=== PATIENT | female | born 1960 | race American Indian/Alaskan Native ===

== ENCOUNTER 2020-09-24 17:26 | Inpatient (IN) | payer OTHER ==
[2020-09-24] MEDS ORDERED: HEPARIN 1,000 UNIT/1 ML VIAL IV ONE (17:29)
[2020-09-24] MEDS ORDERED: CLOPIDOGREL 300 MG TAB PO ONE (17:29)
[2020-09-24] MEDS ORDERED: ONDANSETRON 4 MG/2 ML INJ ONE (17:30)
[2020-09-24] MEDS ORDERED: SODIUM CHLORIDE 0.9% 1000 ML 1,000 ML ONE (17:34)
[2020-09-24] MEDS ORDERED: ONDANSETRON 4 MG/2 ML INJ IV ONE (17:35)
[2020-09-24] MEDS ORDERED: SODIUM CHLORIDE 0.9% 500 ML 500 ML IV ONE (17:35)
--- NOTE | 2020-09-24 17:40 | Emergency Department Report ---
ED Chest Pain HPI - General Stated Complaint: STEMI Time Seen by Provider: 09/24/20 17:29 - History of Present Illness Initial Comments: 59-year-old female, history of hypertension, presents to ED with chest pain since 9 AM this morning. Patient reports substernal burning sensation in her chest. There is associated nausea and vomiting. She denies any shortness of breath. Upon EMS arrival, EKG was done which showed a acute STEMI. EKG was transmitted. STEMI alert was called prior to arrival. EKG was transmitted to Dr. Fall. Patient given 325 mg aspirin and 1 sublingual nitro prior to arrival. Patient received Moderna COVID-19 vaccine 2 weeks ago. MD Complaint: chest pain -: This morning Onset: during rest Pain Location: substernal Pain Radiation: none Severity: severe Quality: other (Burning) Consistency: constant Improves With: nothing Worsens With: nothing re: nausea, vomting Treatments Prior to Arrival: aspirin, nitroglycerin - Related Data Allergies Allergy/AdvReac Type Severity Reaction Status Date / Time tetracycline Allergy Unknown Verified 09/24/20 17:45 Heart Score - HEART Score History: Highly suspicious EKG: Significant ST-depression Age: 45-65 Risk factors: 1-2 risk factors Troponin: < normal limit HEART Score: 6 - EKG Read Time Time EKG Completed: 17:40 EKG Read Time: 17:40 ED Review of Systems ROS: Stated complaint: STEMI Other details as noted in HPI Comment: All other systems reviewed and negative Respiratory: denies: SOB with exertion Cardiovascular: chest pain Gastrointestinal: nausea, vomiting ED Physical Exam - General General appearance: alert, other (Appears uncomfortable) - Head Head exam: Present: atraumatic, normocephalic - Eye Eye exam: Present: normal appearance, EOMI - ENT ENT exam: Present: mucous membranes moist - Neck Neck exam: Present: normal inspection - Respiratory Respiratory exam: Present: normal lung sounds bilaterally. Absent: respiratory distress - Cardiovascular Cardiovascular Exam: Present: regular rate, normal rhythm - GI/Abdominal GI/Abdominal exam: Present: soft. Absent: distended, tenderness - Extremities Exam Extremities exam: Present: normal inspection - Neurological Exam Neurological exam: Present: alert, oriented X3 - Psychiatric Psychiatric exam: Present: normal affect, normal mood - Skin Skin exam: Present: warm, dry, intact, normal color ED Course Vital Signs 05/09/24/20 09/24/20 17:30 17:44 17:46 Temperature 98 F Pulse Rate 73 61 68 Respiratory 18 22 13 Rate Blood Pressure 109/60 Blood Pressure 109/60 [Right] O2 Sat by Pulse 98 Oximetry ED Medical Decision Making - Lab Data Result diagrams: 09/24/20 17:48 09/24/20 17:48 - EKG Data -: EKG Interpreted by Me EKG shows normal: sinus rhythm, axis, intervals, QRS complexes Rate: normal - EKG Data Interpretation: acute [place] (ST elevations present and leads I and aVL with re ciprocal depressions in inferior leads) - Radiology Data Radiology results: report reviewed, image reviewed - Medical Decision Making 59-year-old female presents to ED with acute STEMI. Prehospital STEMI alert called. EKG reviewed by Dr. Fall, landscape technician. Patient given aspirin and sublingual nitro x1 by EMS. Here in ED BP is low normal, 500 cc bolus of IV fluids given. Patient also given Plavix and heparin bolus. EKG shows lateral elevation with inferior depressions. Patient was taken to the [facility] emergent catheterization. Patient will be admitted by hospitalist, Dr. Bailon. - Differential Diagnosis STEMI Critical Care Time: Yes Critical care time in (mins) excluding proc time.: 35 Critical care attestation.: If time is entered above; I have spent that time in minutes in the direct care of this critically ill patient, excluding procedure time. Critical Care Time: 35 min ED Disposition Clinical Impression: STEMI (ST elevation myocardial infarction) Disposition: 09 OP ADMIT IP TO THIS HOSP Is pt being admited?: Yes Condition: Stable Time of Disposition: 17:52
--- NOTE | 2020-09-24 17:55 | XRay Report ---
CHEST 1 VIEW 09/24/2020 5:28 PM INDICATION / CLINICAL INFORMATION: Chest pain. COMPARISON: None available. FINDINGS: SUPPORT DEVICES: None. HEART / MEDIASTINUM: The heart size and pulmonary vasculature are normal. The aorta is normal in eber aminata. LUNGS / PLEURA: There is mild linear parenchymal opacity in both lung bases. The lungs are otherwise clear. No pleural effusion. No pneumothorax. ADDITIONAL FINDINGS: No significant additional findings. IMPRESSION: Mild bibasilar subsegmental atelectasis. Signer Name: Kain Carroll MD Signed: 09/24/2020 5:50 PM Workstation Name: [id number]
--- NOTE | 2020-09-24 17:55 | History and Physical Report ---
History of Present Illness Chief complaint: I have chest pain History of present illness: 59 YO Female with HTN presents to ED for evaluation. Pt reports "I have pain in my chest". Patient states that she has experienced an acute onset of chest pain that began at approximately 0900 hrs. Patient states that pain is 6-10/10, substernal, constant, nonradiating, burning in nature, associated with nausea, associated with vomiting, worsened with exertion, not relieved with rest. EMS was notified and upon arrival the patient was found to be in distress. An EKG was done and the patient was found to have evidence of an acute STEMI. A code STEMI was called and the patient was transported to [facility] for further care and evaluation of the aforementioned symptoms. The patient was seen and evaluated in the emergency department. All lab and imaging studies reviewed. Repeat EKG shows evidence of STEMI. Pt also found to have symptoms of Diastolic CHF. Cardiology team consulted. Patient admitted to ICU and initiated on STEMI protocol. Patient taken urgently to cardiac [facility] for surgical invention. Patient denies fever, chills, palpitation, productive cough, skin rash, recent ill contacts, or known exposure to COVID-19. Advanced care planning conducted in ED. No prior admission for review. No medication listed at time of admission for reconciliation. Past History Past Medical History: hypertension, other (Reviewed) Past Surgical History: No surgical history, Other (Reviewed) Social history: single, lives with family. denies: smoking, alcohol abuse, prescription drug abuse Family history: hypertension Medications and Allergies Allergies Allergy/AdvReac Type Severity Reaction Status Date / Time tetracycline Allergy Unknown Verified 09/24/20 17:45 Active Meds: Active Medications Clopidogrel Bisulfate (Clopidogrel 300 Mg Tab) 600 mg PO ONCE ONE Stop: 09/24/20 17:30 Last Admin: 09/24/20 17:32 Dose: 600 mg Documented by: Heparin Sodium (Porcine) (Heparin 1,000 Unit/1 Ml Vial) 4,000 unit IV BOLUS ONE Stop: 09/24/20 17:30 Last Admin: 09/24/20 17:32 Dose: 4,000 unit Documented by: Sodium Chloride (Nacl 0.9% 500 Ml) 500 mls @ 999 mls/hr IV ONCE ONE Stop: 09/24/20 18:05 Last Admin: 09/24/20 17:39 Dose: 999 mls/hr Documented by: Ondansetron HCl (Ondansetron 4 Mg/2 Ml Inj) 4 mg IV ONCE ONE Stop: 09/24/20 17:36 Last Admin: 09/24/20 17:39 Dose: 4 mg Documented by: Review of Systems Constitutional: no weight loss, no fever, no chills, no sweats Ears, nose, mouth and throat: no ear pain, no tinnitis, no decreased hearing, no nose pain, no nasal congestion Breasts: no change in shape, no swelling, no mass Cardiovascular: chest pain, no orthopnea, no palpitations, no syncope Respiratory: no cough, no cough with sputum, no excessive sputum, no shortness of breath, no dyspnea on exertion Gastrointestinal: no nausea, no diarrhea, no constipation, no hematemesis, no coffee ground emesis Genitourinary Female: no pelvic pain, no flank pain, no menorrhagia, no dysuria, no urinary frequency, no urgency Rectal: no pain, no incontinence, no bleeding Musculoskeletal: no neck stiffness, no neck pain, no arm numbness/tingling, no low back pain, no shooting leg pain Integumentary: no rash, no redness Neurological: no head injury, no paralysis, no weakness, no numbness, no tingling, no seizures, no syncope Psychiatric: no anxiety, no change in sleep habits, no sleep disturbances, no hypersomnia, no change in appetite, no suicidal ideation Endocrine: no heat intolerance, no polyphagia, no excessive thirst, no polyuria Hematologic/Lymphatic: no easy bruising, no easy bleeding, no lymphadenopathy Allergic/Immunologic: no urticaria, no persistent infections, no anaphylaxis, no angioedema Exam - Constitutional Vitals: Temp Pulse Resp BP Pulse Ox 98 F 61 22 109/60 98 09/24/20 17:44 09/24/20 17:44 09/24/20 17:44 09/24/20 17:44 09/24/20 17:44 General appearance: Present: mild distress - EENT Eyes: Present: PERRL ENT: hearing intact, clear oral mucosa - Neck Neck: Present: supple, normal ROM - Respiratory Respiratory effort: normal Respiratory: bilateral: CTA - Cardiovascular Heart Sounds: Present: S1 & S2. Absent: rub, click - Extremities Extremities: pulses symmetrical, No edema Peripheral Pulses: within normal limits - Abdominal General gastrointestinal: Present: soft, non-tender, non-distended, normal bowel sounds Female genitourinary: Present: normal - Integumentary Integumentary: Present: clear, warm, dry - Musculoskeletal Musculoskeletal: gait normal, strength equal bilaterally - Psychiatric Psychiatric: appropriate mood/affect, intact judgment & insight - Neurologic Neurologic: CNII-XII intact, moves all extremities Results - Labs CBC & Chem 7: 09/24/20 17:48 09/24/20 17:48 Assessment and Plan - Patient Problems (1) STEMI (ST elevation myocardial infarction) Current Visit: No Status: Acute Plan to address problem: Cardiology team consulted in ED, cardiac cath as per cardiology team, admit to ICU, telemetry, further care as per cardiology team. The high probability of a clinically significant, sudden or life threatening deterioration of the [cardiac, vascular,] system(s) required my full and direct attention, intervention and personal management. The aggregate critical care time was [65] minutes. This time is in addition to time spent performing reported procedures but includes the following: [x] Data Review and interpretation [x] Patient assessment and monitoring of vital signs [x] Documentation [x] Medication orders and management (2) Hypertension Current Visit: Yes Status: Acute Qualifiers: Hypertension type: essential hypertension Qualified Code(s): I10 - Essential (primary) hypertension Plan to address problem: Monitor blood pressure every shift, continue medical management (3) Diastolic CHF Current Visit: Yes Status: Acute Plan to address problem: Strict I/O, daily weight, afterload reduction, blood pressure control, cardiology team consulted in ED. (4) DVT prophylaxis Current Visit: Yes Status: Acute Plan to address problem: SCD to bilateral lower extremities while in bed
[2020-09-24] MEDS ORDERED: HEPARIN/NS 5000 UNIT/500ML 1,000 ML IR ONE (17:56)
[2020-09-24] MEDS ORDERED: fentaNYL 100 MCG/2 ML INJ ONE (17:57)
[2020-09-24] MEDS ORDERED: MIDAZOLAM 2 MG/2 ML INJ ONE (17:57)
[2020-09-24 17:58] LABS: Basophils % (Auto) 0.4 % (0.0-1.8); Eosinophils % (Auto) 0.4 % (0.0-4.3); Hematocrit 36.4 % (30.3-42.9); Hemoglobin 11.6 gm/dl (10.1-14.3); Lymphocytes # (Auto) 1.7 K/mm3 (1.2-5.4); Lymphocytes % (Auto) 20.2 % (13.4-35.0); Mean Corpuscular HGB Conc 32 % (30-34); Mean Corpuscular Volume 74 fl (79-97); Monocytes # (Auto) 0.6 K/mm3 (0.0-0.8); Monocytes % (Auto) 7.4 % (0.0-7.3); Platelet Count 373 K/mm3 (140-440); Red Blood Count 4.95 M/mm3 (3.65-5.03); Red Cell Distribution Width 15.4 % (13.2-15.2)
[2020-09-24] MEDS ORDERED: NITROGLYCERIN SYRINGE 3 ML ONE (17:58)
[2020-09-24] MEDS ORDERED: VERAPAMIL 5 MG/2 ML INJ ONE (17:58)
[2020-09-24] MEDS ORDERED: LIDOCAINE (2%) 20 MG/1 ML VIAL 20 ML MDV INFILTRATI ONE (17:58)
[2020-09-24 18:10] LABS: INR 1.15 (0.87-1.13)
[2020-09-24] MEDS: HEPARIN 10,000 UNITS/10 ML VIAL ONE ×2 (18:13→18:22)
[2020-09-24 18:21] LABS: Creatine Kinase MB 1.8 ng/mL (0.0-4.0)
[2020-09-24 18:23] LABS: BUN/Creatinine Ratio 14; Blood Urea Nitrogen 13 mg/dL (7-17); Calcium 9.1 mg/dL (8.4-10.2); Hemolysis Index 4
[2020-09-24 18:30] LABS: Partial Thromboplastin Time 124.2 Sec. (24.2-36.6)
[2020-09-24] MEDS ORDERED: HEPARIN 10,000 UNITS/10 ML VIAL IV ONE (19:00)
--- NOTE | 2020-09-24 19:03 | Event Note ---
Full consultation and cath report dictated.
[2020-09-24] MEDS ORDERED: CLOPIDOGREL 300 MG TAB ONE (19:07)
[2020-09-24] MEDS ORDERED: ALUM-MAG HYDROXIDE-SIMETHICONE 200-200-20MG/5ML ORAL LIQD 30 ML ONE (19:07)
--- NOTE | 2020-09-24 19:32 | Cardiac Catherization Report ---
DATE OF PROCEDURE: 09/24/2020 CARDIAC CATHETERIZATION REPORT REFERRING PHYSICIAN: Emergency Room, Dr. Philippe. INDICATIONS FOR PROCEDURE: The patient is a 59-year-old -[place]oven[place] female who has had 2-3 hours of chest pain, presented to the Emergency Room with anterolateral ST elevation with inferior reciprocal changes. STEMI protocol was initiated. The patient was loaded with aspirin, Plavix, and heparin in the Emergency Room, for emergent left heart catheterization. DESCRIPTION OF PROCEDURE: The patient was brought to label drier in an urgent fashion given the aforementioned. Prepped and draped in sterile fashion. A 2 mL of 2% lidocaine used to anesthetize the right wrist. A standard 6-[place]izen [place] hydrophilic sheath used to cannulate the right radial artery via modified Seldinger technique. All exchanges performed to exchange a J-tip guidewire. JL3.5 catheter used to engage the left main. No dampening or ventricularization. Angiography was performed in all projections. JR4 catheters used cross the aortic valve under fluoroscopic guidance. Left ventriculography was performed in the 30 JIMENEZ 30 JOELLE projections via hand injections, catheter flushed. Manual pullback was performed with continuous pressure monitoring. Catheter was engaged the right coronary, no dampening or ventricularization. Cineangiography performed in multiple projections. CORONARY ANATOMY: This is a right dominant system. There is 80-90% mid right coronary stenosis which is smooth. UVALDO-3 flow. Left main without significant disease, bifurcates in left anterior descending, left circumflex. Left circumflex is a small system, diffuse disease proximally, small through AV groove circ. LAD with a 99% subtotal occlusion of the mid segment after the takeoff of a large septal branch. At this point, we turned our attention to primary PCI. Abnormal ACT is confirmed. We used a [place] wire to cross the lesion without difficulty. A 2.5 x 12 balloon used to predilate the lesion. Next, we used a 2.75 x 22 Todd drug-eluting stent deployed at 12 NYDIA for 30 seconds. Excellent final angiographic result. Intravascular ultrasound was performed, which reveals an well-apposed and well-expanded stent. No evidence of dissection or complication. Final angiograms revealed an excellent result with UVALDO-3 flow. At this point, we will treat the right coronary electively during this hospitalization. I directly supervised the administration of moderate sedation with fentanyl and Versed from 6:00 p.m. to 6:40 p.m. No immediate complications were identified. CONCLUSIONS: 1. Severe 2-vessel coronary artery disease in this right dominant system. Acute atherothrombotic occlusion of the mid left anterior descending, successful IVUS guided primary PCI placement of drug-eluting stent (Todd 2.75 x 22) with excellent final angiographic and ultrasonographic result. 2. The 80% mid right coronary stenosis which is smooth and stable. UVALDO-3 flow. We will electively treat in 2-3 days should the patient remain stable. 3. Left ventricle reveals anterior apical hypokinesis with estimated ejection fraction of 40-45%. FINDINGS: Aortic pressure is 130/70, LV pressure is 130, LVEDP of 20 mmHg. At this point, the patient is clinically stable, chest pain free, electrically and hemodynamically stable. Did have bouts of AIVR precath. At this point, continue dual antiplatelet therapy, statin therapy. We will initiate low-dose beta blockade. The patient will be admitted to ICU by hospitalist service. We will continue to follow along. Check echocardiogram. We will also attempt to reach family who were not present at this time. TID: [id number] RECEIPT: [id number] SHAYLA/JOSE ANTONIO
[2020-09-24] MEDS: carvediloL 3.125 MG TAB PO SCH (21:09)
[2020-09-24 21:17] LABS: Creatine Kinase MB 84.6 ng/mL (0.0-4.0)
[2020-09-24 21:32] LABS: Chol/HDL Ratio 6.13 %
--- NOTE | 2020-09-25 00:11 | Consultation ---
DATE OF CONSULTATION: 09/24/2020 REASON FOR CONSULTATION: STEMI. HISTORY OF PRESENT ILLNESS: The patient is a pleasant 59-year-old -Finnish female with history of hypertension, presents here with chest pain for 2-3 hours. She does not have a regular primary care physician, does see Urgent Care from time to time. She has been having crushing chest pain, diaphoresis, and shortness of breath for approximately 2-3 hours, presents to [facility], was found to have anterolateral ST elevation on EKG, 10/10 chest pain, no cold or heat intolerance. No vomiting or nausea. No leg pain or rashes. ALLERGIES: No known drug, food, or environmental allergies. LABORATORY DATA: Pending. SOCIAL HISTORY: The patient states she is a nonsmoker, nondrinker. She does endorse a family history of premature heart disease. MEDICATIONS: No known medications at this time. The patient was loaded with aspirin, Plavix, and heparin in the Emergency Room. DIAGNOSTIC DATA: EKG is aforementioned. PHYSICAL EXAMINATION: VITAL SIGNS: Blood pressure is 140/80. She is afebrile. Tele reveals a sinus rhythm. O2 sats 98% on room air. GENERAL: This is a middle-aged, -Finnish female in apparent distress. HEENT: Sclerae are anicteric. PERRL. NECK: Supple, no masses. No JVD. CHEST: Clear to auscultation bilaterally. Good air movement. HEART: Regular rhythm, S1 and S2. ABDOMEN: Soft, nontender, nondistended. Normoactive bowel sounds in 4 quadrants. No mass or bruits. EXTREMITIES: No cyanosis, clubbing or edema. Good peripheral pulses. SKIN: Intact. No rashes. DATA: As aforementioned. Labs pending. EKG is aforementioned. ASSESSMENT AND PLAN: In summary, the patient is a pleasant 59-year-old, -Finnish female. 1. Acute anterolateral ST-elevation myocardial infarction. STEMI protocol was initiated. The patient has been loaded with appropriate optimal medical therapy. Emergent left heart catheterization. Further plans contingent on these results. TID: [id number] RECEIPT: [id number] JAMIE/ROBSON
[2020-09-25 04:49] LABS: Basophils % (Auto) 0.2 % (0.0-1.8); Eosinophils % (Auto) 0.3 % (0.0-4.3); Hematocrit 36.3 % (30.3-42.9); Hemoglobin 11.7 gm/dl (10.1-14.3); Lymphocytes # (Auto) 1.5 K/mm3 (1.2-5.4); Lymphocytes % (Auto) 21.5 % (13.4-35.0); Mean Corpuscular HGB Conc 32 % (30-34); Mean Corpuscular Volume 74 fl (79-97); Monocytes # (Auto) 0.7 K/mm3 (0.0-0.8); Monocytes % (Auto) 10.3 % (0.0-7.3); Platelet Count 359 K/mm3 (140-440); Red Blood Count 4.94 M/mm3 (3.65-5.03); Red Cell Distribution Width 14.8 % (13.2-15.2)
--- NOTE | 2020-09-25 04:58 | XRay Report ---
CHEST 1 VIEW INDICATION: post pci COMPARISON: 09/24/2020 FINDINGS: SUPPORT DEVICES: None. HEART / MEDIASTINUM: No significant abnormality. LUNGS / PLEURA: No significant pulmonary or pleural abnormality. No pneumothorax. ADDITIONAL FINDINGS: IMPRESSION: 1. No acute cardiopulmonary disease Signer Name: Noe Day MD Signed: 09/25/2020 4:54 AM Workstation Name: [id number]
[2020-09-25 05:12] LABS: Blood Urea Nitrogen 9 mg/dL (7-17); Calcium 9.2 mg/dL (8.4-10.2); Hemolysis Index 3
[2020-09-25 05:15] LABS: BUN/Creatinine Ratio 13
[2020-09-25] MEDS ORDERED: SODIUM POLYSTYRENE 15 GM/60 ML ORAL LIQD PO ONE (05:54)
[2020-09-25] MEDS ORDERED: MORPHINE 2 MG/1 ML INJ IV ONE (06:12)
--- NOTE | 2020-09-25 08:04 | Progress Note ---
Assessment and Plan Assessment and plan: --Acute STEMI (ST elevation myocardial infarction) --Acute anterolateral ST elevation OK; Current Visit: No Status: Acute Cardiology evaluated the patient, patient underwent Emergent left catheterization. s/p PCI Severe two-vessel coronary artery disease in the Right dominant system acute atherothrombotic occlusion of the mid LAD status post successful IVUS guided primary PCI placement of drug eluting stent 80% mid right coronary stenosis smooth and stable Electively treat in 2 to 3 days when patient is more stable Echo ;left ventricle anterior apical hypokinesis with estimated EF 40 to 45% Continue dual antiplatelet therapy with aspirin and Plavix Continue beta-blockers , consider JUAN inhibitor's , nitrates and statins Morphine for pain , cardiology following --Dyslipidemia; Current Visit: Yes Status: Acute. Low-cholesterol diet, statin --Hypertension/moderate control Current Visit: Yes Status: Acute Continue antihypertensives As needed medications, low-sodium diet --PUI; high suspicion for COVID-19 Contact and respiratory isolation Follow hardy PCR test, consult ID if positive --DVT prophylaxis Current Visit: Yes Status: Acute SCD to bilateral lower extremities while in bed. We will monitor the patient closely and adjust the management as needed Plan of care reviewed with the patient and her nurse Biostatistics Professor recommendations noted and appreciated The high probability of a clinically significant, sudden or life threatening deterioration of the [cardiac, vascular,] system(s) required my full and direct attention, intervention and personal management. The aggregate critical care time was [35] minutes. This time is in addition to time spent performing reported procedures but includes the following: [x] Data Review and interpretation [x] Patient assessment and monitoring of vital signs [x] Documentation [x] Medication orders and management History Interval history: I have seen and examined the patient at the bedside in ICU Patient's chart and medications reviewed Acute ST elevation OK status post left heart catheterization status post PCI Patient feels slightly better Continues to have intermittent chest pain Denies shortness of breath or palpitation Vital signs noted Hospitalist Physical - Constitutional Vitals: Temp Pulse Resp BP Pulse Ox 98.6 F 69 14 145/87 96 09/25/20 07:00 09/25/20 06:01 09/25/20 06:01 09/25/20 06:01 09/25/20 06:01 General appearance: Present: mild distress, well-nourished - EENT Eyes: Present: PERRL, EOM intact - Neck Neck: Present: supple, normal ROM - Respiratory Respiratory effort: normal Respiratory: bilateral: diminished, negative: rales, rhonchi, wheezing - Cardiovascular Rhythm: regular Heart Sounds: Present: S1 & S2 - Extremities Extremities: no ischemia, No edema - Abdominal General gastrointestinal: soft, non-tender, non-distended, normal bowel sounds - Integumentary Integumentary: Present: clear, warm - Psychiatric Psychiatric: appropriate mood/affect, cooperative - Neurologic Neurologic: CNII-XII intact, moves all extremities HEART Score - HEART Score EKG: Significant ST-depression Age: 45-65 Risk factors: 1-2 risk factors Troponin: Troponin T 3.140 ng/mL (0.00-0.029) H* D 09/25/20 04:16 Troponin: < normal limit Results - Labs CBC & Chem 7: 09/25/20 04:16 09/25/20 04:16 Labs: Laboratory Last Values WBC 6.9 K/mm3 (4.5-11.0) 09/25/20 04:16 RBC 4.94 M/mm3 (3.65-5.03) 09/25/20 04:16 Hgb 11.7 gm/dl (10.1-14.3) 09/25/20 04:16 Hct 36.3 % (30.3-42.9) 09/25/20 04:16 MCV 74 fl (79-97) L 09/25/20 04:16 MCH 24 pg (28-32) L 09/25/20 04:16 MCHC 32 % (30-34) 09/25/20 04:16 RDW 14.8 % (13.2-15.2) 09/25/20 04:16 Plt Count 359 K/mm3 (140-440) 09/25/20 04:16 Lymph % (Auto) 21.5 % (13.4-35.0) 09/25/20 04:16 Guthrie % (Auto) 10.3 % (0.0-7.3) H 09/25/20 04:16 Eos % (Auto) 0.3 % (0.0-4.3) 09/25/20 04:16 Baso % (Auto) 0.2 % (0.0-1.8) 09/25/20 04:16 Lymph # (Auto) 1.5 K/mm3 (1.2-5.4) 09/25/20 04:16 Guthrie # (Auto) 0.7 K/mm3 (0.0-0.8) 09/25/20 04:16 Eos # (Auto) 0.0 K/mm3 (0.0-0.4) 09/25/20 04:16 Baso # (Auto) 0.0 K/mm3 (0.0-0.1) 09/25/20 04:16 Seg Neutrophils % 67.7 % (40.0-70.0) 09/25/20 04:16 Seg Neutrophils # 4.6 K/mm3 (1.8-7.7) 09/25/20 04:16 PT 14.6 Sec. (12.2-14.9) 09/24/20 17:48 INR 1.15 (0.87-1.13) H 09/24/20 17:48 APTT 124.2 Sec. (24.2-36.6) H* 09/24/20 17:48 Sodium 141 mmol/L (137-145) 09/25/20 04:16 Potassium 5.1 mmol/L (3.6-5.0) H D 09/25/20 04:16 Chloride 105.1 mmol/L (98-107) 09/25/20 04:16 Carbon Dioxide 26 mmol/L (22-30) 09/25/20 04:16 Anion Gap 15 mmol/L 09/25/20 04:16 BUN 9 mg/dL (7-17) 09/25/20 04:16 Creatinine 0.7 mg/dL (0.6-1.2) 09/25/20 04:16 Estimated GFR > 60 ml/min 09/25/20 04:16 BUN/Creatinine Ratio 13 % 09/25/20 04:16 Glucose 102 mg/dL (65-100) H 09/25/20 04:16 Calcium 9.2 mg/dL (8.4-10.2) 09/25/20 04:16 Total Creatine Kinase 974 units/L (30-135) H 09/25/20 04:16 CK-MB (CK-2) 130.0 ng/mL (0.0-4.0) H 09/25/20 04:16 CK-MB (CK-2) Rel Index 13.3 (0-4) H 09/25/20 04:16 Troponin T 3.140 ng/mL (0.00-0.029) H* D 09/25/20 04:16 Triglycerides 85 mg/dL (2-149) 09/24/20 20:08 Cholesterol 184 mg/dL (50-199) 09/24/20 20:08 LDL Cholesterol Direct 142 mg/dL (50-130) H 09/24/20 20:08 HDL Cholesterol 30 mg/dL (40-59) L 09/24/20 20:08 Cholesterol/HDL Ratio 6.13 % 09/24/20 20:08 Blood Type B POSITIVE 09/24/20 17:48 Antibody Screen Negative 09/24/20 17:48 Active Medications - Current Medications Current Medications: Generic Name Dose Route Start Last Admin Trade Name Freq PRN Reason Stop Dose Admin Hydrocodone Bitart/Acetaminophen 1 each 09/24/20 19:00 Hydrocodone/Acetaminophen 5-325 Mg Tab PO Q6H PRN Pain, Moderate (4-6) Aspirin 325 mg 09/25/20 10:00 Aspirin Ec 325 Mg Tab PO QDAY THANG Carvedilol 3.125 mg 09/24/20 22:00 09/24/20 21:09 Carvedilol 3.125 Mg Tab PO 3.125 mg BID THANG Administration Clopidogrel Bisulfate 75 mg 09/25/20 10:00 Clopidogrel 75 Mg Tab PO QDAY THANG Sodium Chloride 10 ml 09/24/20 22:00 09/24/20 21:09 Sodium Chloride 0.9% 10 Ml Flush Syringe IV 10 ml BID THANG Administration Sodium Chloride 10 ml 09/24/20 17:55 Sodium Chloride 0.9% 10 Ml Flush Syringe IV PRN PRN LINE FLUSH
[2020-09-25] MEDS: ASPIRIN EC 325 MG TAB PO SCH (09:51)
[2020-09-25] MEDS: CLOPIDOGREL 75 MG TAB PO SCH (09:51)
[2020-09-25] MEDS: carvediloL 3.125 MG TAB PO SCH ×2 (09:51→21:08)
[2020-09-25] MEDS: NITROGLYCERIN 0.4 MG TAB SUBL SL PRN (09:52)
[2020-09-25] MEDS: FAMOTIDINE 20 MG/2 ML INJ IV SCH ×2 (09:52→21:08)
--- NOTE | 2020-09-25 11:32 | Consultation ---
History of Present Illness Consult date: 09/25/20 Requesting physician: ASHELY ANGUIANO Reason for consult: other (STEMI) History of present illness: 59 YO Female with HTN presents to ED for evaluation. Pt reports "I have pain in my chest". Patient states that she has experienced an acute onset of chest pain that began at approximately 0900 hrs. Patient states that pain is 6-10/10, substernal, constant, nonradiating, burning in nature, associated with nausea, associated with vomiting, worsened with exertion, not relieved with rest. EMS was notified and upon arrival the patient was found to be in distress. An EKG was done and the patient was found to have evidence of an acute STEMI. A code STEMI was called and the patient was transported to [facility] for further care and evaluation of the aforementioned symptoms. The patient was seen and evaluated in the emergency department. All lab and imaging studies reviewed. Repeat EKG shows evidence of STEMI. Pt also found to have symptoms of Diastolic CHF. Cardiology team consulted. Patient admitted to ICU and initiated on STEMI protocol. Patient taken urgently to cardiac Speech Language Pathologist Assistant for surgical invention. Patient denies fever, chills, palpitation, productive cough, skin rash, recent ill contacts, or known exposure to COVID-19. Status post acute enzo-lateral ST elevation myocardial infarction s/p Succes sful primary PCI of LAD with MARIAM yesterday with p[carisa for second stage procedure on Wednesday 09/27. Patient was admitted to the ICU ppost procedure Critical care consult placed for ICU care Patient seen and examined. Patient received Moderna COVID-19 vaccine 2 weeks ago, waiting to get her second dose She does state that both her sisters had MIs and have stents- all before the age of 60 years Vitals, labs, medications, chart reviewed. Resting peacefully in bed, denies any chest pain, no shortness of breath. No fevers or chills, no nausea or vomiting. Past History Past Medical History: hypertension, other (Reviewed) Past Surgical History: No surgical history, Other (Reviewed) Social history: single, lives with family. denies: smoking, alcohol abuse, prescription drug abuse Family history: hypertension Medications and Allergies Allergies Allergy/AdvReac Type Severity Reaction Status Date / Time tetracycline Allergy Unknown Verified 09/24/20 17:45 Active Meds: Active Medications Hydrocodone Bitart/Acetaminophen (Hydrocodone/Acetaminophen 5-325 Mg Tab) 1 each PO Q6H PRN PRN Reason: Pain, Moderate (4-6) Aspirin (Aspirin Ec 325 Mg Tab) 325 mg PO QDAY [facility] Last Admin: 09/25/20 09:51 Dose: 325 mg Documented by: Carvedilol (Carvedilol 3.125 Mg Tab) 3.125 mg PO BID [facility] Last Admin: 09/25/20 09:51 Dose: 3.125 mg Documented by: Clopidogrel Bisulfate (Clopidogrel 75 Mg Tab) 75 mg PO QDAY [facility] Last Admin: 09/25/20 09:51 Dose: 75 mg Documented by: Famotidine (Famotidine 20 Mg/2 Ml Inj) 20 mg IV BID [facility] Last Admin: 09/25/20 09:52 Dose: 20 mg Documented by: Nitroglycerin (Nitroglycerin 0.4 Mg Tab Subl) 0.4 mg SL .Q5MIN PRN PRN Reason: Chest Pain Last Admin: 09/25/20 09:52 Dose: 0.4 mg Documented by: Sodium Chloride (Sodium Chloride 0.9% 10 Ml Flush Syringe) 10 ml IV BID [facility] Last Admin: 09/25/20 09:53 Dose: 10 ml Documented by: Sodium Chloride (Sodium Chloride 0.9% 10 Ml Flush Syringe) 10 ml IV PRN PRN PRN Reason: LINE FLUSH Review of Systems Constitutional: no weight loss, no weight gain, no fever, no chills, no sweats, no night sweats Ears, nose, mouth and throat: deferred Breasts: deferred Cardiovascular: chest pain, shortness of breath, no orthopnea, no palpitations, no rapid/irregular heart beat, no edema, no syncope, no lightheadedness Respiratory: shortness of breath, dyspnea on exertion, no cough, no cough with sputum, no excessive sputum, no hemoptysis Gastrointestinal: no abdominal pain, no nausea, no vomiting, no diarrhea, no constipation Musculoskeletal: shooting arm pain, arm numbness/tingling Neurological: no transient paralysis, no weakness, no parathesias, no tremors Psychiatric: no anxiety, no memory loss, no insomnia, no change in appetite, no suicidal ideation Endocrine: no cold intolerance, no heat intolerance, no polyphagia, no excessive thirst, no polydipsia, no polyuria, no nocturia Physical Examination Vital signs: Vital Signs Pulse Resp 73 18 09/24/20 17:30 09/24/20 17:30 General appearance: no acute distress, alert Eyes: non-icteric ENT: oropharynx moist Neck: supple, no lymphadenopathy, no JVD Effort: normal Ascultation: Bilateral: clear, diminished breath sounds Cardiovascular: regular rate and rhythm, other (S1,S2) Gastrointestinal: normoactive bowel sounds, soft, non-tender Integumentary: normal Extremities: no cyanosis, no edema, pink and warm, pulses normal Musculoskeletal: no deformities normal mental status, non-focal exam, pupils equal and round, CN II-XII normal, motor strength normal and mood appropriate, affect normal Results - Laboratory Findings CBC and BMP: 09/25/20 04:16 09/25/20 04:16 PT/INR, D-dimer PT 14.6 Sec. (12.2-14.9) 09/24/20 17:48 INR 1.15 (0.87-1.13) H 09/24/20 17:48 Abnormal lab findings: Abnormal Labs 09/24/20 09/24/20 09/24/20 17:48 17:48 17:48 MCV 74 L MCH 24 L RDW 15.4 H [place] % (Auto) 7.4 H Seg Neutrophils % 71.6 H INR 1.15 H APTT 124.2 H* Potassium Glucose 190 H Total Creatine Kinase CK-MB (CK-2) CK-MB (CK-2) Rel Index Troponin T LDL Cholesterol Direct HDL Cholesterol 09/24/20 09/25/20 09/25/20 20:08 04:16 04:16 MCV 74 L MCH 24 L RDW [place] % (Auto) 10.3 H Seg Neutrophils % INR APTT Potassium 5.1 H D Glucose 102 H Total Creatine Kinase 612 H 974 H CK-MB (CK-2) 84.6 H 130.0 H CK-MB (CK-2) Rel Index 13.8 H 13.3 H Troponin T 2.190 H* D 3.140 H* D LDL Cholesterol Direct 142 H HDL Cholesterol 30 L - Diagnostic Findings Chest x-ray: image reviewed (Low lung volumes otherwise free of infiltrates) Additional studies: Left heart catheterization -Severe two-vessel coronary artery disease in the Right dominant system acute atherothrombotic occlusion of the mid LAD status post successful IVUS guided primary PCI placement of drug eluting stent 80% mid right coronary stenosis smooth and stable Transthoracic echocardiogram -Left ventricle anterior apical hypokinesis with estimated EF 40 to 45% Assessment and Plan Acute STEMI (ST elevation myocardial infarction) Cardiomyopathy -left ventricle anterior apical hypokinesis with estimated EF 40 to 45% ( Echocardiogram) Dyslipidemia Hypertension/moderate control -Supplemental oxygen as clinically indicated to keep SpO2 90-92% -Continue with dual platelet therapy- Aspirin, Clopidogrel -Continue with Beta-romero, JUAN inhibitor Status post acute enzo-lateral ST elevation myocardial infarction -Elective PCI of mid right coronary on Wednesday 09/27, by Cardiology -Cardiac diet -Life style modification, heart failure education -Blood pressure control -Acuchecks, ensure glycemic control -BMP in am -Continue ICU care until second stage [procedure is done on Saturday The high probability of a clinically significant, sudden or life threatening d eterioration of the [cardiac, vascular,] system(s) required my full and direct attention, intervent ion and personal management. The aggregate critical care time was [35] minutes. This time is in addition to time spent performing reported procedures but includes the following: [x] Data Review and interpretation [x] Patient assessment and monitoring of vital signs [x] Documentation [x] Medication orders and management
--- NOTE | 2020-09-25 11:43 | Progress Note ---
Assessment and Plan This is a very pleasant 59-year-old Afro-[place] female: 1. Status post acute enzo-lateral ST elevation myocardial infarction * Successful primary PCI of LAD with MARIAM yesterday * Patient is clinically stable and chest pain-free * Continue aspirin, Plavix, statin, beta-romero * Add low-dose JUAN inhibition * Follow-up echocardiography * Elective PCI of mid right coronary on Saturday 2. Systemic arterial hypertension * Under decent control with beta-blockade, adding JUAN inhibition We will follow along closely. Subjective Date of service: 09/25/20 Interval history: Patient is seen in the ICU and doing fantastic. No chest pain or shortness of b reath. Feels much better. Objective Vital Signs Temp Pulse Resp BP BP Pulse Ox 09/25/20 10:01 72 20 139/81 95 09/25/20 10:00 72 09/25/20 09:52 72 139/81 09/25/20 09:51 72 139/81 09/25/20 09:00 64 17 139/81 97 09/25/20 08:00 63 15 142/77 95 09/25/20 07:00 98.6 F 62 16 132/73 96 09/25/20 06:01 69 14 145/87 96 09/25/20 05:00 70 15 142/74 97 09/25/20 04:00 66 15 140/79 97 09/25/20 03:35 98.8 F 09/25/20 03:00 66 17 149/86 97 09/25/20 02:00 79 24 159/94 96 09/25/20 01:00 64 15 147/88 94 09/25/20 00:00 98.7 F 66 15 154/88 95 09/24/20 23:00 78 13 148/97 97 09/24/20 22:00 73 18 147/87 97 09/24/20 21:09 74 147/87 09/24/20 21:00 76 17 157/88 97 09/24/20 20:43 98.3 F 09/24/20 20:16 77 16 148/91 94 09/24/20 20:00 77 12 148/91 96 09/24/20 19:45 79 18 157/95 95 09/24/20 19:30 80 16 166/98 94 09/24/20 19:25 109/51 99 09/24/20 17:46 68 13 109/60 09/24/20 17:44 98 F 61 22 109/60 98 09/24/20 17:30 73 18 - Labs and Meds Cardiac Enzymes 09/24/20 09/24/20 09/25/20 Range/Units 17:48 20:08 04:16 CK-MB (CK-2) 1.8 84.6 H 130.0 H (0.0-4.0) ng/mL Coagulation 09/24/20 Range/Units 17:48 PT 14.6 (12.2-14.9) Sec. INR 1.15 H (0.87-1.13) APTT 124.2 H* (24.2-36.6) Sec. Lipids 09/24/20 Range/Units 20:08 Triglycerides 85 (2-149) mg/dL Cholesterol 184 (50-199) mg/dL HDL Cholesterol 30 L (40-59) mg/dL Cholesterol/HDL Ratio 6.13 % CBC 09/24/20 09/25/20 Range/Units 17:48 04:16 WBC 8.3 6.9 (4.5-11.0) K/mm3 RBC 4.95 4.94 (3.65-5.03) M/mm3 Hgb 11.6 11.7 (10.1-14.3) gm/dl Hct 36.4 36.3 (30.3-42.9) % Plt Count 373 359 (140-440) K/mm3 Lymph # (Auto) 1.7 1.5 (1.2-5.4) K/mm3 [place] # (Auto) 0.6 0.7 (0.0-0.8) K/mm3 Eos # (Auto) 0.0 0.0 (0.0-0.4) K/mm3 Baso # (Auto) 0.0 0.0 (0.0-0.1) K/mm3 Comprehensive Metabolic Panel 09/24/20 09/25/20 Range/Units 17:48 04:16 Sodium 140 141 (137-145) mmol/L Potassium 3.7 5.1 H D (3.6-5.0) mmol/L Chloride 103.8 105.1 (98-107) mmol/L Carbon Dioxide 23 26 (22-30) mmol/L BUN 13 9 (7-17) mg/dL Creatinine 0.9 0.7 (0.6-1.2) mg/dL Glucose 190 H 102 H (65-100) mg/dL Calcium 9.1 9.2 (8.4-10.2) mg/dL
[2020-09-25] MEDS: LISINOPRIL 5 MG TAB PO SCH (13:06)
--- NOTE | 2020-09-25 16:09 | Event Note ---
Date: 09/25/20 Nurse called and reported that patient's COVID-19 test is positive, Will continue isolation, evaluation for oxygen if hypoxemia start remdesivir and steroid Inflammatory markers, prone positioning, Patient is on room air saturating well Chest x-ray negative for abnormalities/ammonia ID consulted, Pulmonary critical following I will also call the family and update patient's condition. Plan of care discussed with the patient's nurse
[2020-09-25 18:04] LABS: C-Reactive Protein 2.9 mg/dL (0.00-1.30)
[2020-09-26] MEDS: NITROGLYCERIN 0.4 MG TAB SUBL SL PRN ×2 (01:00→01:09)
[2020-09-26] MEDS: ONDANSETRON 4 MG/2 ML INJ IV PRN ×3 (01:20→21:18)
[2020-09-26] MEDS: HYDROcodone/ACETAMINOPHEN 5-325 MG TAB PO PRN (04:51)
--- NOTE | 2020-09-26 08:23 | Progress Note ---
Assessment and Plan Assessment and plan: ----COVID-19 infection[ test positive on 09/25/2020], Patient reports that she was positive for the last 10 days continue isolation, patient is on room air saturating well Follow inflammatory markers, prone positioning, Chest x-ray negative for abnormalities/ammonia Pending ID evaluation, Pulmonary critical following Monitor oxygen saturations daily --Acute STEMI (ST elevation myocardial infarction) --Acute anterolateral ST elevation CT; Emergent left catheterization. s/p PCI 09/25/2020 Severe two-vessel coronary artery disease in the Right dominant system acute atherothrombotic occlusion of the mid LAD S/P successful IVUS guided primary PCI placement of drug eluting stent 80% mid right coronary stenosis smooth and stable Electively treat in 2 to 3 days when patient is more stable Echo ;left ventricle anterior apical hypokinesis with estimated EF 40 to 45% Continue dual antiplatelet therapy with aspirin and Plavix Continue beta-blockers , consider JUAN inhibitor's , nitrates and statins Morphine for pain , cardiology following --Dyspepsia; Current Visit: Yes Status: Acute. Advised Maalox 30 mL p.o. x1 now and daily as needed Supportive care --Dyslipidemia; Current Visit: Yes Status: Acute. Low-cholesterol diet, statin --Hypertension/moderate control Current Visit: Yes Status: Acute Continue antihypertensives As needed medications, low-sodium diet --DVT prophylaxis Current Visit: Yes Status: Acute SCD to bilateral lower extremities while in bed. We will closely monitor the patient and adjust the management as needed Respiratory Physician recommendations noted and appreciated Plan of care reviewed with the patient and her nurse The high probability of a clinically significant, sudden or life threatening deterioration of the [cardiac, vascular,] system(s) required my full and direct attention, intervention and personal management. The aggregate critical care time was [33] minutes. This time is in addition to time spent performing reported procedures but includes the following: [x] Data Review and interpretation [x] Patient assessment and monitoring of vital signs [x] Documentation [x] Medication orders and management Brief history and daily hospital course; 59-year-old female patient was admitted through emergency room with acute ST elevation CT had emergent left heart catheterization and PCI to mid LAD, And elective intervention for 80% of RCA stenosis in 2 to 3 days, patient is on dual antiplatelet therapy and supportive care. Case of BUN hardy PCR test is positive 09/25/20[patient reports that she has been positive for the last 10 days] in isolation ID consulted. 09/26/2020; patient complains of intermittent chest pain and discomfort On isolation, ID consulted, follow inflammatory markers Consultants recommendations noted History Interval history: I seen and examined the patient at the bedside in ICU Isolation precautions and PPE protocols followed per COVID-19 guidelines Patient complains of intermittent chest pain and discomfort Has mild nausea no vomiting Vital signs noted Hospitalist Physical - Constitutional Vitals: Temp Pulse Resp BP Pulse Ox 97.6 F 74 22 153/94 95 09/26/20 08:13 09/26/20 06:00 09/26/20 06:00 09/26/20 06:00 09/26/20 06:00 General appearance: Present: mild distress, well-nourished - EENT Eyes: Present: PERRL, EOM intact - Neck Neck: Present: supple, normal ROM - Respiratory Respiratory effort: normal Respiratory: bilateral: diminished, negative: rales, rhonchi, wheezing - Cardiovascular Rhythm: regular Heart Sounds: Present: S1 & S2 - Extremities Extremities: no ischemia, No edema - Abdominal General gastrointestinal: soft, non-tender, non-distended, normal bowel sounds - Integumentary Integumentary: Present: clear, warm - Psychiatric Psychiatric: appropriate mood/affect, cooperative - Neurologic Neurologic: moves all extremities HEART Score - HEART Score EKG: Significant ST-depression Age: 45-65 Risk factors: 1-2 risk factors Troponin: Troponin T 3.140 ng/mL (0.00-0.029) H* D 09/25/20 04:16 Troponin: < normal limit Results - Labs CBC & Chem 7: 09/25/20 04:16 09/25/20 04:16 Labs: Laboratory Last Values WBC 6.9 K/mm3 (4.5-11.0) 09/25/20 04:16 RBC 4.94 M/mm3 (3.65-5.03) 09/25/20 04:16 Hgb 11.7 gm/dl (10.1-14.3) 09/25/20 04:16 Hct 36.3 % (30.3-42.9) 09/25/20 04:16 MCV 74 fl (79-97) L 09/25/20 04:16 MCH 24 pg (28-32) L 09/25/20 04:16 MCHC 32 % (30-34) 09/25/20 04:16 RDW 14.8 % (13.2-15.2) 09/25/20 04:16 Plt Count 359 K/mm3 (140-440) 09/25/20 04:16 Lymph % (Auto) 21.5 % (13.4-35.0) 09/25/20 04:16 [place] % (Auto) 10.3 % (0.0-7.3) H 09/25/20 04:16 Eos % (Auto) 0.3 % (0.0-4.3) 09/25/20 04:16 Baso % (Auto) 0.2 % (0.0-1.8) 09/25/20 04:16 Lymph # (Auto) 1.5 K/mm3 (1.2-5.4) 09/25/20 04:16 [place] # (Auto) 0.7 K/mm3 (0.0-0.8) 09/25/20 04:16 Eos # (Auto) 0.0 K/mm3 (0.0-0.4) 09/25/20 04:16 Baso # (Auto) 0.0 K/mm3 (0.0-0.1) 09/25/20 04:16 Seg Neutrophils % 67.7 % (40.0-70.0) 09/25/20 04:16 Seg Neutrophils # 4.6 K/mm3 (1.8-7.7) 09/25/20 04:16 PT 14.6 Sec. (12.2-14.9) 09/24/20 17:48 INR 1.15 (0.87-1.13) H 09/24/20 17:48 APTT 124.2 Sec. (24.2-36.6) H* 09/24/20 17:48 D-Dimer 465.30 ng/mlDDU (0-234) H 09/25/20 17:16 Sodium 141 mmol/L (137-145) 09/25/20 04:16 Potassium 5.1 mmol/L (3.6-5.0) H D 09/25/20 04:16 Chloride 105.1 mmol/L (98-107) 09/25/20 04:16 Carbon Dioxide 26 mmol/L (22-30) 09/25/20 04:16 Anion Gap 15 mmol/L 09/25/20 04:16 BUN 9 mg/dL (7-17) 09/25/20 04:16 Creatinine 0.7 mg/dL (0.6-1.2) 09/25/20 04:16 Estimated GFR > 60 ml/min 09/25/20 04:16 BUN/Creatinine Ratio 13 % 09/25/20 04:16 Glucose 102 mg/dL (65-100) H 09/25/20 04:16 Calcium 9.2 mg/dL (8.4-10.2) 09/25/20 04:16 Ferritin 429.5 ng/mL (10.0-200.0) H 09/25/20 17:16 Lactate Dehydrogenase 517 units/L (91-180) H 09/25/20 17:16 Total Creatine Kinase 974 units/L (30-135) H 09/25/20 04:16 CK-MB (CK-2) 130.0 ng/mL (0.0-4.0) H 09/25/20 04:16 CK-MB (CK-2) Rel Index 13.3 (0-4) H 09/25/20 04:16 Troponin T 3.140 ng/mL (0.00-0.029) H* D 09/25/20 04:16 C-Reactive Protein 2.90 mg/dL (0.00-1.30) H 09/25/20 17:16 Triglycerides 85 mg/dL (2-149) 09/24/20 20:08 Cholesterol 184 mg/dL (50-199) 09/24/20 20:08 LDL Cholesterol Direct 142 mg/dL (50-130) H 09/24/20 20:08 HDL Cholesterol 30 mg/dL (40-59) L 09/24/20 20:08 Cholesterol/HDL Ratio 6.13 % 09/24/20 20:08 Coronavirus (PCR) Positive (Negative) A 09/25/20 Unknown Blood Type B POSITIVE 09/24/20 17:48 Antibody Screen Negative 09/24/20 17:48 Active Medications - Current Medications Current Medications: Generic Name Dose Route Start Last Admin Trade Name Freq PRN Reason Stop Dose Admin Hydrocodone Bitart/Acetaminophen 1 each 09/24/20 19:00 09/26/20 04:51 Hydrocodone/Acetaminophen 5-325 Mg Tab PO 1 each Q6H PRN Administration Pain, Moderate (4-6) Aspirin 325 mg 09/25/20 10:00 09/25/20 09:51 Aspirin Ec 325 Mg Tab PO 325 mg QDAY THANG Administration Carvedilol 3.125 mg 09/24/20 22:00 09/25/20 21:08 Carvedilol 3.125 Mg Tab PO 3.125 mg BID THANG Administration Clopidogrel Bisulfate 75 mg 09/25/20 10:00 09/25/20 09:51 Clopidogrel 75 Mg Tab PO 75 mg QDAY THANG Administration Famotidine 20 mg 09/25/20 10:00 09/25/20 21:08 Famotidine 20 Mg/2 Ml Inj IV 20 mg BID THANG Administration Lisinopril 5 mg 09/25/20 12:00 09/25/20 13:06 Lisinopril 5 Mg Tab PO 5 mg QDAY THANG Administration Nitroglycerin 0.4 mg 09/25/20 08:19 09/26/20 01:09 Nitroglycerin 0.4 Mg Tab Subl SL 0.4 mg .Q5MIN PRN Administration Chest Pain Ondansetron HCl 4 mg 09/26/20 01:11 09/26/20 01:20 Ondansetron 4 Mg/2 Ml Inj IV 4 mg Q8H PRN Administration Nausea And Vomiting Sodium Chloride 10 ml 09/24/20 22:00 09/25/20 21:08 Sodium Chloride 0.9% 10 Ml Flush Syringe IV 10 ml BID THANG Administration Sodium Chloride 10 ml 09/24/20 17:55 Sodium Chloride 0.9% 10 Ml Flush Syringe IV PRN PRN LINE FLUSH
[2020-09-26] MEDS: ALUM-MAG HYDROXIDE-SIMETHICONE 200-200-20MG/5ML ORAL LIQD 30 ML PO PRN (08:50)
--- NOTE | 2020-09-26 09:18 | Progress Note ---
Assessment and Plan Acute STEMI (ST elevation myocardial infarction) Cardiomyopathy -left ventricle anterior apical hypokinesis with estimated EF 40 to 45% ( Echocardiogram) Dyslipidemia Hypertension/moderate control -Supplemental oxygen as clinically indicated to keep SpO2 90-92% -Continue with dual platelet therapy- Aspirin, Clopidogrel -Continue with Beta-romero, JUAN inhibitor Status post acute enzo-lateral ST elevation myocardial infarction -Elective PCI of mid right coronary on Wednesday 09/27, by Cardiology -Cardiac diet -Life style modification, heart failure education -Blood pressure control -Acuchecks, ensure glycemic control -BMP in am -Continue ICU care until second stage procedure is done on tomorrow The high probability of a clinically significant, sudden or life threatening deterioration of the [cardiac, vascular,] system(s) required my full and direct attention, intervention and personal management. The aggregate critical care time was [32] minutes. This time is in addition to time spent performing reported procedures but includes the following: [x] Data Review and interpretation [x] Patient assessment and monitoring of vital signs [x] Documentation [x] Medication orders and management Subjective Date of service: 09/26/20 Interval history: 59-year-old female patient was admitted through emergency room with acute ST elevation [place] had emergent left heart catheterization and PCI to mid LAD, And elective intervention for 80% of RCA stenosis in 2 to 3 days, patient is on dual antiplatelet therapy and supportive care. Case of BUN hardy PCR test is positive 09/25/20[patient reports that she has been positive for the last 10 days in isolation 09/26/2020; patient complains of intermittent chest pain and discomfort. Denies any shortness of breath. Plan for LHC and intervention to RCA in the morning Objective Vital Signs - 12hr 09/25/20 09/25/20 09/25/20 22:00 23:00 23:04 Temperature Pulse Rate 73 81 74 Pulse Rate [ From Monitor] Respiratory 21 15 19 Rate Blood Pressure 160/92 147/75 153/96 O2 Sat by Pulse 97 Oximetry 09/25/20 09/26/20 09/26/20 23:28 00:00 01:00 Temperature 98.0 F Pulse Rate 69 77 Pulse Rate [ 69 From Monitor] Respiratory 16 13 Rate Blood Pressure 167/99 157/100 O2 Sat by Pulse 90 97 Oximetry 09/26/20 09/26/20 09/26/20 01:09 02:00 03:00 Temperature Pulse Rate 86 68 79 Pulse Rate [ From Monitor] Respiratory 16 15 Rate Blood Pressure 157/100 121/71 112/79 O2 Sat by Pulse 93 94 Oximetry 09/26/20 09/26/20 09/26/20 03:54 04:00 05:00 Temperature 99.0 F Pulse Rate 75 77 Pulse Rate [ 76 From Monitor] Respiratory 19 18 Rate Blood Pressure 160/89 175/108 O2 Sat by Pulse 96 95 Oximetry 09/26/20 09/26/20 06:00 08:13 Temperature 97.6 F Pulse Rate 74 Pulse Rate [ From Monitor] Respiratory 22 Rate Blood Pressure 153/94 O2 Sat by Pulse 95 Oximetry Constitutional: no acute distress, alert Eyes: non-icteric ENT: oropharynx moist Neck: supple, no lymphadenopathy, no JVD Effort: normal Ascultation: Bilateral: clear, diminished breath sounds Cardiovascular: regular rate and rhythm, other (S1,S2) Gastrointestinal: normoactive bowel sounds, soft, non-tender Integumentary: normal Extremities: no cyanosis, no edema, pink and warm, pulses normal Neurologic: normal mental status, non-focal exam, pupils equal and round, CN II- XII normal, motor strength normal and Psychiatric: mood appropriate, affect normal CBC and BMP: 09/27/20 06:52 09/27/20 06:52 ABG, PT/INR, D-dimer: PT/INR, D-dimer PT 14.6 Sec. (12.2-14.9) 09/24/20 17:48 INR 1.15 (0.87-1.13) H 09/24/20 17:48 D-Dimer 465.30 ng/mlDDU (0-234) H 09/25/20 17:16 Abnormal lab findings: Abnormal Labs 09/24/20 09/24/20 09/24/20 17:48 17:48 17:48 MCV 74 L MCH 24 L RDW 15.4 H [place] % (Auto) 7.4 H Seg Neutrophils % 71.6 H INR 1.15 H APTT 124.2 H* D-Dimer Potassium Glucose 190 H Ferritin Lactate Dehydrogenase Total Creatine Kinase CK-MB (CK-2) CK-MB (CK-2) Rel Index Troponin T C-Reactive Protein LDL Cholesterol Direct HDL Cholesterol Coronavirus (PCR) 05/09/25/20 09/25/20 20:08 04:16 04:16 MCV 74 L MCH 24 L RDW [place] % (Auto) 10.3 H Seg Neutrophils % INR APTT D-Dimer Potassium 5.1 H D Glucose 102 H Ferritin Lactate Dehydrogenase Total Creatine Kinase 612 H 974 H CK-MB (CK-2) 84.6 H 130.0 H CK-MB (CK-2) Rel Index 13.8 H 13.3 H Troponin T 2.190 H* D 3.140 H* D C-Reactive Protein LDL Cholesterol Direct 142 H HDL Cholesterol 30 L Coronavirus (PCR) 09/25/20 09/25/20 09/25/20 17:16 17:16 17:16 MCV MCH RDW [place] % (Auto) Seg Neutrophils % INR APTT D-Dimer 465.30 H Potassium Glucose Ferritin 429.5 H Lactate Dehydrogenase 517 H Total Creatine Kinase CK-MB (CK-2) CK-MB (CK-2) Rel Index Troponin T C-Reactive Protein 2.90 H LDL Cholesterol Direct HDL Cholesterol Coronavirus (PCR) 09/25/20 Unknown MCV MCH RDW [place] % (Auto) Seg Neutrophils % INR APTT D-Dimer Potassium Glucose Ferritin Lactate Dehydrogenase Total Creatine Kinase CK-MB (CK-2) CK-MB (CK-2) Rel Index Troponin T C-Reactive Protein LDL Cholesterol Direct HDL Cholesterol Coronavirus (PCR) Positive A Allied health notes reviewed: nursing
[2020-09-26] MEDS: LISINOPRIL 5 MG TAB PO SCH (10:00)
[2020-09-26] MEDS: FAMOTIDINE 20 MG/2 ML INJ IV SCH ×2 (10:00→21:18)
[2020-09-26] MEDS: carvediloL 3.125 MG TAB PO SCH (10:01)
[2020-09-26] MEDS: ASPIRIN EC 325 MG TAB PO SCH (10:01)
[2020-09-26] MEDS: CLOPIDOGREL 75 MG TAB PO SCH (10:01)
[2020-09-26 10:05] LABS: Creatine Kinase MB 151.1 ng/mL (0.0-4.0)
--- NOTE | 2020-09-26 11:00 | Consultation ---
History of Present Illness - Reason for Consult Consult date: 09/26/20 COVID-19, STEMI Requesting physician: ASHELY ANGUIANO - History of Present Illness The patient is a 59-year-old female with hypertension admitted to the hospital on 09/24/2020 with complaints of chest pain and was found to have an acute ST elevation myocardial infarction. She was seen by cardiology and underwent successful primary PCI of LAD. She also tested positive for COVID-19 and hence infectious diseases was consulted. She otherwise is afebrile. Currently, she is in ICU but on room air. She has a slight cough. Labs revealed normal WBC, D-dimer 465, CRP 2.9, ferritin 429, LDH 519. Chest x- ray does not reveal any pneumonia. Review of Systems: reviewed in the chart, unable to obtain, minimize risk of transmission Past History Past Medical History: hypertension, other (Reviewed) Past Surgical History: No surgical history, Other (Reviewed) Social history: single, lives with family. denies: smoking, alcohol abuse, prescription drug abuse Family history: hypertension Medications and Allergies Allergies Allergy/AdvReac Type Severity Reaction Status Date / Time tetracycline Allergy Unknown Verified 09/24/20 17:45 Active Meds: Active Medications Hydrocodone Bitart/Acetaminophen (Hydrocodone/Acetaminophen 5-325 Mg Tab) 1 each PO Q6H PRN PRN Reason: Pain, Moderate (4-6) Last Admin: 09/26/20 04:51 Dose: 1 each Documented by: Al Hydrox/Mg Hydrox/Simethicone (Alum-Mag Hydroxide-Simethicone [phone]/5ml Oral Liqd 30 Ml) 30 ml PO DAILY PRN PRN Reason: Indigestion Last Admin: 09/26/20 08:50 Dose: 30 ml Documented by: Aspirin (Aspirin Ec 325 Mg Tab) 325 mg PO QDAY [facility] Last Admin: 09/26/20 10:01 Dose: 325 mg Documented by: Carvedilol (Carvedilol 3.125 Mg Tab) 3.125 mg PO BID [facility] Last Admin: 09/26/20 10:01 Dose: 3.125 mg Documented by: Clopidogrel Bisulfate (Clopidogrel 75 Mg Tab) 75 mg PO QDAY [facility] Last Admin: 09/26/20 10:01 Dose: 75 mg Documented by: Famotidine (Famotidine 20 Mg/2 Ml Inj) 20 mg IV BID [facility] Last Admin: 09/26/20 10:00 Dose: 20 mg Documented by: Lisinopril (Lisinopril 5 Mg Tab) 5 mg PO QDAY [facility] Last Admin: 09/26/20 10:00 Dose: 5 mg Documented by: Nitroglycerin (Nitroglycerin 0.4 Mg Tab Subl) 0.4 mg SL .Q5MIN PRN PRN Reason: Chest Pain Last Admin: 09/26/20 01:09 Dose: 0.4 mg Documented by: Ondansetron HCl (Ondansetron 4 Mg/2 Ml Inj) 4 mg IV Q8H PRN PRN Reason: Nausea And Vomiting Last Admin: 09/26/20 01:20 Dose: 4 mg Documented by: Sodium Chloride (Sodium Chloride 0.9% 10 Ml Flush Syringe) 10 ml IV BID [facility] Last Admin: 09/26/20 10:02 Dose: 10 ml Documented by: Sodium Chloride (Sodium Chloride 0.9% 10 Ml Flush Syringe) 10 ml IV PRN PRN PRN Reason: LINE FLUSH Physical Examination - Physical Exam Narrative exam: Physical Exam (reviewed in chart to minimize risk of transmission) Constitutional: deferred Head, Ears, Nose: deferred Eyes: deferred Neck: deferred Oral: deferred Cardiovascular: deferred Respiratory: deferred GI: deferred Musculoskeletal: deferred Skin: deferred Hem/Lymphatic: deferred Psych: deferred Neurological: deferred - Constitutional Vitals: Vital Signs Temp Pulse Resp BP Pulse Ox 97.6 F 84 22 160/94 95 09/26/20 08:13 09/26/20 10:01 09/26/20 06:00 09/26/20 10:01 09/26/20 06:00 Temperature -Last 24 Hours Temperature 97.6 F Temperature 99.0 F Temperature 98.0 F Temperature 97.8 F Temperature 97.1 F Temperature 98.7 F Results - Labs CBC & Chem 7: 09/25/20 04:16 09/25/20 04:16 Labs: Abnormal lab results 09/25/20 09/25/20 09/25/20 Range/Units 17:16 17:16 17:16 D-Dimer 465.30 H (0-234) ng/mlDDU Ferritin 429.5 H (10.0-200.0) ng/mL Lactate Dehydrogenase 517 H (91-180) units/L Total Creatine Kinase (30-135) units/L CK-MB (CK-2) (0.0-4.0) ng/mL CK-MB (CK-2) Rel Index (0-4) Troponin T (0.00-0.029) ng/mL C-Reactive Protein 2.90 H (0.00-1.30) mg/dL Coronavirus (PCR) (Negative) 09/25/20 09/26/20 Range/Units Unknown 08:49 D-Dimer (0-234) ng/mlDDU Ferritin (10.0-200.0) ng/mL Lactate Dehydrogenase (91-180) units/L Total Creatine Kinase 1095 H (30-135) units/L CK-MB (CK-2) 151.1 H (0.0-4.0) ng/mL CK-MB (CK-2) Rel Index 13.7 H (0-4) Troponin T 1.820 H* D (0.00-0.029) ng/mL C-Reactive Protein (0.00-1.30) mg/dL Coronavirus (PCR) Positive A (Negative) - Imaging and Cardiology Chest x-ray: report reviewed, image reviewed (no pneumonia) Assessment and Plan Cultures: SARS CoV2 PCR: Positive A/P: 59-year-old female with hypertension admitted with STEMI: #COVID-19 infection: Not hypoxic, afebrile. CRP 2.9, ferritin 429. Chest x-ray without any obvious infiltrates. Patient already was positive for COVID-19 about 10 days prior to admission #Acute STEMI: Status post primary PCI of LAD. Cardiology following. Recs: -No indication for steroids or remdesivir at this time -Continue to monitor for hypoxia -monitor markers every 2-3 days -CRP and procal ordered for AM Lico Patel MD, FACP [facility] ([facility] O: [phone] F: [phone]
--- NOTE | 2020-09-26 11:05 | Progress Note ---
Assessment and Plan This is a very pleasant 59-year-old Afro-[place] female: 1. Status post acute enzo-lateral ST elevation myocardial infarction * Successful primary PCI of LAD with MARIAM yesterday * Patient is clinically stable and chest pain-free * Continue aspirin, Plavix, statin, beta-romero * Add low-dose JUAN inhibition * Echocardiogram reviewed with patient today. * Elective PCI of mid right coronary on Saturday * Double beta-romero for better blood pressure control. 2. Systemic arterial hypertension * Double beta-romero 3. Covid + for > 10 days Okay to transfer to telemetry. Discussed with Dr. aden. Subjective Interval history: Patient is seen in the ICU and doing fantastic. No chest pain or shortness of breath. Feels much better. Objective Vital Signs Temp Pulse Pulse Resp BP Pulse Ox 09/26/20 10:01 84 160/94 09/26/20 10:00 88 160/94 09/26/20 08:13 97.6 F 09/26/20 06:00 74 22 153/94 95 09/26/20 05:00 77 18 175/108 95 09/26/20 04:00 75 76 19 160/89 96 09/26/20 03:54 99.0 F 09/26/20 03:00 79 15 112/79 94 09/26/20 02:00 68 16 121/71 93 09/26/20 01:09 86 157/100 09/26/20 01:00 77 13 157/100 97 09/26/20 00:00 69 69 16 167/99 90 09/25/20 23:28 98.0 F 09/25/20 23:04 74 19 153/96 97 09/25/20 23:00 81 15 147/75 09/25/20 22:00 73 21 160/92 09/25/20 21:08 71 09/25/20 21:00 69 16 147/75 95 09/25/20 20:00 68 15 163/94 92 09/25/20 19:56 97.8 F 09/25/20 19:38 74 16 97 09/25/20 19:00 73 16 160/92 95 09/25/20 18:00 72 21 142/92 96 09/25/20 17:20 97.1 F L 09/25/20 17:00 84 18 139/103 97 09/25/20 16:00 83 83 15 148/87 96 09/25/20 15:00 66 12 152/86 97 09/25/20 14:00 63 17 152/86 91 09/25/20 13:06 65 150/87 09/25/20 13:00 64 17 150/87 90 09/25/20 12:01 64 19 139/81 95 09/25/20 12:00 66 12 97 09/25/20 11:44 98.7 F - Labs and Meds Cardiac Enzymes 09/25/20 09/26/20 Range/Units 17:16 08:49 Lactate Dehydrogenase 517 H (91-180) units/L CK-MB (CK-2) 151.1 H (0.0-4.0) ng/mL
[2020-09-26] MEDS ORDERED: ONDANSETRON 4 MG/2 ML INJ IV ONE (17:03)
[2020-09-26] MEDS: carvediloL 6.25 MG TAB PO SCH (21:17)
--- NOTE | 2020-09-26 21:37 | Electrocardiograph Report ---
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
--- NOTE | 2020-09-26 21:41 | Electrocardiograph Report ---
[facility] Test Date: 2020-09-25 Test Time: 06:25:33 Pat Name: SABA HILL Department: Room: A254 1 Gender: F Buncher Hand: harman : 1960 Requested By: MARILIN NAJERA Order Number: [id number] Reading MD: Emily Cee Measurements Intervals [place] Rate: 101 P: [place]: QRS: -15 QRSD: 94 T: 140 QT: 466 QTc: 606 Interpretive Statements Sinus rhythm, followed by a burst of rapid atrial fibrillation Anterolateral QS complexes consistent with old anterolateral infarct Compared to ECG 09/24/2020 17:34:04 Inferior ischemia is no longer evident Rapid atrial fibrillation is now present Electronically Signed On 09-26-2020 21:41:18 EDT by Emily Cee
--- NOTE | 2020-09-26 21:41 | Electrocardiograph Report ---
[facility] Test Date: 2020-09-25 Test Time: 08:42:37 Pat Name: SABA HILL Department: Room: A254 1 Gender: F Audio Visual Engineer: DARIEL : 1960 Requested By: MARILIN NAJERA Order Number: [id number] Reading MD: Emily Cee Measurements Intervals [place] Rate: 66 P: 57 MI: 138 QRS: -9 QRSD: 98 T: 142 QT: 470 QTc: 491 Interpretive Statements Sinus rhythm Abnrm T, consider ischemia, anterolateral lds Compared to ECG 09/24/2020 17:34:04 Rapid atrial fibrillation is no longer evident Electronically Signed On 09-26-2020 21:41:41 EDT by Emily Cee
[2020-09-27] MEDS ORDERED: ACETAMINOPHEN 325 MG TAB PO PRN (00:07)
[2020-09-27 07:22] LABS: Hematocrit 37.4 % (30.3-42.9); Hemoglobin 12.1 gm/dl (10.1-14.3); Mean Corpuscular HGB Conc 32 % (30-34); Mean Corpuscular Volume 72 fl (79-97); Platelet Count 409 K/mm3 (140-440); Red Blood Count 5.21 M/mm3 (3.65-5.03); Red Cell Distribution Width 14.8 % (13.2-15.2)
[2020-09-27 07:36] LABS: Alanine Aminotransferase 15 units/L (7-56); Albumin 3.1 g/dL (3.9-5); BUN/Creatinine Ratio 11; Blood Urea Nitrogen 12 mg/dL (7-17); Calcium 8.8 mg/dL (8.4-10.2); Hemolysis Index 30
--- NOTE | 2020-09-27 08:42 | Progress Note ---
Assessment and Plan Assessment and plan: Patient is scheduled for left heart catheterization today for elective intervention of 80% stenosis of mid RCA. Patient is n.p.o. status As patient is Covid positive , unable to send to telemetry floor Patient will be transferred IM after the procedure --COVID-19 infection[ test positive on 09/25/2020], Patient reports that she was positive for the last 10 days ID evaluation noted and appreciated continue isolation, patient is on room air saturating well Follow inflammatory markers, prone positioning, Chest x-ray negative for abnormalities/ammonia Pulmonary following Monitor oxygen saturations daily --Acute STEMI (ST elevation myocardial infarction) --Acute anterolateral ST elevation [place]; Emergent left catheterization. s/p PCI 09/25/2020 Severe two-vessel coronary artery disease in the S/P successful IVUS guided primary PCI placement of drug eluting stent mid LAD 80% mid right coronary stenosis smooth and stable for elective Left Heart cath today Echo ;left ventricle anterior apical hypokinesis with estimated EF 40 to 45% Continue dual antiplatelet therapy with aspirin and Plavix Continue beta-blockers , consider JUAN inhibitor's , nitrates and statins Morphine for pain , cardiology following --Dyspepsia; Current Visit: Yes Status: Acute. Advised Maalox 30 mL p.o. x1 now and daily as needed Supportive care --Dyslipidemia; Current Visit: Yes Status: Acute. Low-cholesterol diet, statin --Hypertension/moderate control Current Visit: Yes Status: Acute Continue antihypertensives As needed medications, low-sodium diet --DVT prophylaxis Current Visit: Yes Status: Acute SCD to bilateral lower extremities while in bed. We will closely monitor the patient and adjust the management as needed Substation Design Draftsperson recommendations noted and appreciated Plan of care reviewed with the patient and her nurse The high probability of a clinically significant, sudden or life threatening deterioration of the [cardiac, vascular,] system(s) required my full and direct attention, intervention and personal management. The aggregate critical care time was [33] minutes. This time is in addition to time spent performing reported procedures but includes the following: [x] Data Review and interpretation [x] Patient assessment and monitoring of vital signs [x] Documentation [x] Medication orders and management Brief history and daily hospital course; 59-year-old female patient was admitted through emergency room with acute ST elevation [place] had emergent left heart catheterization and PCI to mid LAD, And elective intervention for 80% of RCA stenosis in 2 to 3 days, patient is on dual antiplatelet therapy and supportive care. Case of BUN hadry PCR test is positive 09/25/20[patient reports that she has been positive for the last 10 days] in isolation ID consulted. 09/26/2020; patient complains of intermittent chest pain and discomfort On isolation, ID consulted, follow inflammatory markers Consultants recommendations noted 09/27/2020; patient is scheduled for elective left heart catheterization for mid RCA stenosis intervention Patient will be transferred from [facility] after the procedure History Interval history: I have seen and examined the patient at the bedside this morning in ICU Patient's chart and medications reviewed, Patient feels slightly better no new complaints Vital signs reviewed Hospitalist Physical - Constitutional Vitals: Temp Pulse Resp BP Pulse Ox 98.7 F 88 19 123/78 98 09/27/20 03:19 09/27/20 08:00 09/27/20 08:00 09/27/20 08:00 09/27/20 08:00 General appearance: Present: mild distress, well-nourished - EENT Eyes: Present: PERRL, EOM intact - Neck Neck: Present: supple, normal ROM - Respiratory Respiratory effort: normal Respiratory: bilateral: diminished, negative: rales, rhonchi, wheezing - Cardiovascular Rhythm: regular Heart Sounds: Present: S1 & S2 - Extremities Extremities: no ischemia, No edema - Abdominal General gastrointestinal: soft, non-tender, non-distended, normal bowel sounds - Integumentary Integumentary: Present: clear, warm - Psychiatric Psychiatric: appropriate mood/affect, cooperative - Neurologic Neurologic: CNII-XII intact, moves all extremities HEART Score - HEART Score EKG: Significant ST-depression Age: 45-65 Risk factors: 1-2 risk factors Troponin: Troponin T 1.820 ng/mL (0.00-0.029) H* D 09/26/20 08:49 Troponin: < normal limit Results - Labs CBC & Chem 7: 09/27/20 06:52 09/27/20 06:52 Labs: Laboratory Last Values WBC 10.9 K/mm3 (4.5-11.0) 09/27/20 06:52 RBC 5.21 M/mm3 (3.65-5.03) H 09/27/20 06:52 Hgb 12.1 gm/dl (10.1-14.3) 09/27/20 06:52 Hct 37.4 % (30.3-42.9) 09/27/20 06:52 MCV 72 fl (79-97) L 09/27/20 06:52 MCH 23 pg (28-32) L 09/27/20 06:52 MCHC 32 % (30-34) 09/27/20 06:52 RDW 14.8 % (13.2-15.2) 09/27/20 06:52 Plt Count 409 K/mm3 (140-440) 09/27/20 06:52 Lymph % (Auto) 21.5 % (13.4-35.0) 09/25/20 04:16 [place] % (Auto) 10.3 % (0.0-7.3) H 09/25/20 04:16 Eos % (Auto) 0.3 % (0.0-4.3) 09/25/20 04:16 Baso % (Auto) 0.2 % (0.0-1.8) 09/25/20 04:16 Lymph # (Auto) 1.5 K/mm3 (1.2-5.4) 09/25/20 04:16 [place] # (Auto) 0.7 K/mm3 (0.0-0.8) 09/25/20 04:16 Eos # (Auto) 0.0 K/mm3 (0.0-0.4) 09/25/20 04:16 Baso # (Auto) 0.0 K/mm3 (0.0-0.1) 09/25/20 04:16 Seg Neutrophils % 67.7 % (40.0-70.0) 09/25/20 04:16 Seg Neutrophils # 4.6 K/mm3 (1.8-7.7) 09/25/20 04:16 PT 14.6 Sec. (12.2-14.9) 09/24/20 17:48 INR 1.15 (0.87-1.13) H 09/24/20 17:48 APTT 124.2 Sec. (24.2-36.6) H* 09/24/20 17:48 D-Dimer 465.30 ng/mlDDU (0-234) H 09/25/20 17:16 Sodium 133 mmol/L (137-145) L D 06/01/21 06:52 Potassium 4.4 mmol/L (3.6-5.0) 09/27/20 06:52 Chloride 97.4 mmol/L (98-107) L 09/27/20 06:52 Carbon Dioxide 25 mmol/L (22-30) 09/27/20 06:52 Anion Gap 15 mmol/L 09/27/20 06:52 BUN 12 mg/dL (7-17) 09/27/20 06:52 Creatinine 1.1 mg/dL (0.6-1.2) D 09/27/20 06:52 Estimated GFR > 60 ml/min 09/27/20 06:52 BUN/Creatinine Ratio 11 % 09/27/20 06:52 Glucose 109 mg/dL (65-100) H 09/27/20 06:52 POC Glucose 112 mg/dL (70-105) H 09/27/20 04:57 Calcium 8.8 mg/dL (8.4-10.2) 09/27/20 06:52 Ferritin 429.5 ng/mL (10.0-200.0) H 09/25/20 17:16 Total Bilirubin 0.50 mg/dL (0.1-1.2) 09/27/20 06:52 AST 62 units/L (5-40) H 09/27/20 06:52 ALT 15 units/L (7-56) 09/27/20 06:52 Alkaline Phosphatase 70 units/L (35-129) 09/27/20 06:52 Lactate Dehydrogenase 517 units/L (91-180) H 09/25/20 17:16 Total Creatine Kinase 1095 units/L (30-135) H 09/26/20 08:49 CK-MB (CK-2) 151.1 ng/mL (0.0-4.0) H 09/26/20 08:49 CK-MB (CK-2) Rel Index 13.7 (0-4) H 09/26/20 08:49 Troponin T 1.820 ng/mL (0.00-0.029) H* D 09/26/20 08:49 C-Reactive Protein 2.90 mg/dL (0.00-1.30) H 09/25/20 17:16 Total Protein 7.2 g/dL (6.3-8.2) 09/27/20 06:52 Albumin 3.1 g/dL (3.9-5) L 09/27/20 06:52 Albumin/Globulin Ratio 0.8 % 09/27/20 06:52 Triglycerides 85 mg/dL (2-149) 09/24/20 20:08 Cholesterol 184 mg/dL (50-199) 09/24/20 20:08 LDL Cholesterol Direct 142 mg/dL (50-130) H 09/24/20 20:08 HDL Cholesterol 30 mg/dL (40-59) L 09/24/20 20:08 Cholesterol/HDL Ratio 6.13 % 09/24/20 20:08 Coronavirus (PCR) Positive (Negative) A 09/25/20 Unknown Blood Type B POSITIVE 09/24/20 17:48 Antibody Screen Negative 09/24/20 17:48 Active Medications - Current Medications Current Medications: Generic Name Dose Route Start Last Admin Trade Name Freq PRN Reason Stop Dose Admin Acetaminophen 650 mg 09/27/20 00:07 09/27/20 00:00 Acetaminophen 325 Mg Tab PO 650 mg Q6H PRN Administration Non Cardiac Pain or Temp>100.5 Hydrocodone Bitart/Acetaminophen 1 each 09/24/20 19:00 09/26/20 04:51 Hydrocodone/Acetaminophen 5-325 Mg Tab PO 1 each Q6H PRN Administration Pain, Moderate (4-6) Al Hydrox/Mg Hydrox/Simethicone 30 ml 09/26/20 08:18 09/26/20 08:50 Alum-Mag Hydroxide-Simethicone [id number]/5ml Oral Liqd 30 Ml PO 30 ml DAILY PRN Administration Indigestion Aspirin 325 mg 09/25/20 10:00 09/26/20 10:01 Aspirin Ec 325 Mg Tab PO 325 mg QDAY THANG Administration Atorvastatin Calcium 40 mg 09/27/20 22:00 Atorvastatin 40 Mg Tab PO QHS THANG Carvedilol 6.25 mg 09/26/20 22:00 09/26/20 21:17 Carvedilol 6.25 Mg Tab PO 6.25 mg BID THANG Administration Clopidogrel Bisulfate 75 mg 09/25/20 10:00 09/26/20 10:01 Clopidogrel 75 Mg Tab PO 75 mg QDAY THANG Administration Famotidine 20 mg 09/27/20 10:00 Famotidine 20 Mg Tab PO BID THANG Lisinopril 5 mg 09/25/20 12:00 09/26/20 10:00 Lisinopril 5 Mg Tab PO 5 mg QDAY THANG Administration Nitroglycerin 0.4 mg 09/25/20 08:19 09/26/20 01:09 Nitroglycerin 0.4 Mg Tab Subl SL 0.4 mg .Q5MIN PRN Administration Chest Pain Ondansetron HCl 4 mg 09/26/20 17:03 09/26/20 21:18 Ondansetron 4 Mg/2 Ml Inj IV 4 mg Q4H PRN Administration Nausea And Vomiting Sodium Chloride 10 ml 09/24/20 22:00 09/26/20 21:18 Sodium Chloride 0.9% 10 Ml Flush Syringe IV 10 ml BID THANG Administration Sodium Chloride 10 ml 09/24/20 17:55 Sodium Chloride 0.9% 10 Ml Flush Syringe IV PRN PRN LINE FLUSH
[2020-09-27] MEDS: LISINOPRIL 5 MG TAB PO SCH (09:20)
[2020-09-27] MEDS: carvediloL 6.25 MG TAB PO SCH (09:20)
[2020-09-27] MEDS: ASPIRIN EC 325 MG TAB PO SCH (09:20)
[2020-09-27] MEDS: CLOPIDOGREL 75 MG TAB PO SCH (09:20)
[2020-09-27] MEDS: FAMOTIDINE 20 MG TAB PO SCH ×2 (09:22→21:20)
[2020-09-27] MEDS ORDERED: LIDOCAINE (2%) 20 MG/1 ML VIAL 20 ML MDV INFILTRATI ONE (09:54)
[2020-09-27] MEDS ORDERED: VERAPAMIL 5 MG/2 ML INJ ONE (09:54)
[2020-09-27] MEDS ORDERED: fentaNYL 100 MCG/2 ML INJ ONE (10:11)
[2020-09-27] MEDS ORDERED: MIDAZOLAM 2 MG/2 ML INJ ONE (10:11)
--- NOTE | 2020-09-27 10:14 | Progress Note ---
Assessment and Plan 59 YO Female with HTN presents to ED for evaluation. Pt reports "I have pain in my chest". Patient states that she has experienced an acute onset of chest pain that began at approximately 0900 hrs. Patient states that pain is 6-10/10, lorenzo bsternal, constant, nonradiating, burning in nature, associated with nausea, associated with vomiting, worsened with exertion, not relieved with rest. EMS was notified and upon arrival the patient was found to be in distress. An EKG was done and the patient was found to have evidence of an acute STEMI. A code STEMI was called and the patient was transported to [facility] for further care and evaluation of the aforementioned symptoms. The patient was seen and evaluated in the emergency department. All lab and imaging studies reviewed. Repeat EKG shows evidence of STEMI. Pt also found to have symptoms of Diastolic CHF. Cardiology team consulted. Patient admitted to ICU and initiated on STEMI protocol. Patient taken urgently to cardiac [employer] [employer] [facility] for surgical invention. Patient denies fever, chills, palpitation, productive cough, skin rash. Patient said received ist Covid vaccination and few days after that she is positive for COVID. Patient still positive for COVID. Patient has no history of smoking, alcohol or drug abuse. 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 Patient has no complaint of chest pain or shortness of breath, chest pain or cou gh. Patient is on room air. O2 saturation 96%. Patient running low grade temp. No leukocytosis. Patients chest xray done 09/25/20 reported No acute cardiopulmonary disease . Patient is on ceftriaxone, Zithromax, S/C heparin and famotidine. Patient just went for cardiac cath. Patient just went for cardiac cath. I spent critical care time of 35 minutes obtaining history, review the labs, review chest xray, talking to the nursing staff, respiratory therapy and work out plan of treatment. - Patient Problems (1) Diastolic CHF Current Visit: Yes Status: Acute Plan to address problem: Management as per cardiology. (2) Hypertension Current Visit: Yes Status: Acute Qualifiers: Hypertension type: essential hypertension Qualified Code(s): I10 - Essential (primary) hypertension Plan to address problem: Management as per primary care. (3) Coronary artery disease Current Visit: Yes Status: Chronic Plan to address problem: Patient undergone cardiac catherization and coronary stent placement. (4) COVID-19 Current Visit: Yes Status: Acute Plan to address problem: Management as per infectious diseases. Subjective Date of service: 09/27/20 Interval history: 59 YO Female with HTN presents to ED for evaluation. Pt reports "I have pain in my chest". Patient states that she has experienced an acute onset of chest pain that began at approximately 0900 hrs. Patient states that pain is 6-10/10, substernal, constant, nonradiating, burning in nature, associated with nausea, a ssociated with vomiting, worsened with exertion, not relieved with rest. EMS was notified and upon arrival the patient was found to be in distress. An EKG was done and the patient was found to have evidence of an acute STEMI. A code STEMI was called and the patient was transported to [facility] for further care and evaluation of the aforementioned symptoms. The patient was seen and evaluated in the emergency department. All lab and imaging studies reviewed. Repeat EKG shows evidence of STEMI. Pt also found to have symptoms of Diastolic CHF. Cardiology team consulted. Patient admitted to ICU and initiated on STEMI protocol. Patient taken urgently to cardiac [employer] for surgical invention. Patient denies fever, chills, palpitation, productive cough, skin rash. Patient said received ist Covid vaccination and few days after that she is positive for COVID. Patient still positive for COVID. Patient has no history of smoking, alcohol or drug abuse. 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 Patient has no complaint of chest pain or shortness of breath, chest pain or cough. Patient is on room air. O2 saturation 96%. Patient running low grade temp. No leukocytosis. Patients chest xray done 09/25/20 reported No acute cardiopulmonary disease . Patient is on ceftriaxone, Zithromax, S/C heparin and famotidine. Objective Vital Signs - 12hr 09/26/20 09/26/20 09/27/20 23:00 23:29 00:00 Temperature 101.7 F H Pulse Rate 93 H 95 H Pulse Rate [ 95 H From Monitor] Respiratory 21 16 Rate Blood Pressure 136/87 129/72 O2 Sat by Pulse 97 98 Oximetry 09/27/20 09/27/20 09/27/20 00:02 01:00 02:00 Temperature Pulse Rate 94 H 91 H 85 Pulse Rate [ From Monitor] Respiratory 21 21 16 Rate Blood Pressure 129/72 137/78 137/78 O2 Sat by Pulse 99 95 82 L Oximetry 09/27/20 09/27/20 09/27/20 03:00 03:19 04:00 Temperature 98.7 F Pulse Rate 83 78 Pulse Rate [ 78 From Monitor] Respiratory 19 16 Rate Blood Pressure 101/64 113/66 O2 Sat by Pulse 98 Oximetry 09/27/20 09/27/20 09/27/20 05:00 06:00 07:00 Temperature Pulse Rate 81 82 82 Pulse Rate [ From Monitor] Respiratory 16 18 16 Rate Blood Pressure 109/64 116/65 118/73 O2 Sat by Pulse 94 97 95 Oximetry 09/27/20 09/27/20 08:00 09:20 Temperature Pulse Rate 83 90 Pulse Rate [ 88 From Monitor] Respiratory 17 Rate Blood Pressure 123/78 135/87 O2 Sat by Pulse 96 Oximetry Constitutional: no acute distress, alert Eyes: non-icteric ENT: oropharynx moist Neck: supple, no lymphadenopathy, no JVD Effort: normal Ascultation: Bilateral: diminished breath sounds Cardiovascular: regular rate and rhythm, other (S1,S2) Gastrointestinal: normoactive bowel sounds, soft, non-tender Integumentary: normal Extremities: no cyanosis, no edema, pink and warm, pulses normal Neurologic: normal mental status, non-focal exam, pupils equal and round, CN II- XII normal, motor strength normal and Psychiatric: mood appropriate, affect normal CBC and BMP: 09/27/20 06:52 09/27/20 06:52 ABG, PT/INR, D-dimer: PT/INR, D-dimer PT 14.6 Sec. (12.2-14.9) 09/24/20 17:48 INR 1.15 (0.87-1.13) H 09/24/20 17:48 D-Dimer 465.30 ng/mlDDU (0-234) H 09/25/20 17:16 Abnormal lab findings: Abnormal Labs 09/24/20 09/24/20 09/24/20 17:48 17:48 17:48 RBC MCV 74 L MCH 24 L RDW 15.4 H Mck[place] % (Auto) 7.4 H Seg Neutrophils % 71.6 H INR 1.15 H APTT 124.2 H* D-Dimer Sodium Potassium Chloride Glucose 190 H POC Glucose Ferritin AST Lactate Dehydrogenase Total Creatine Kinase CK-MB (CK-2) CK-MB (CK-2) Rel Index Troponin T C-Reactive Protein Albumin LDL Cholesterol Direct HDL Cholesterol Coronavirus (PCR) 09/24/20 09/25/20 09/25/20 20:08 04:16 04:16 RBC MCV 74 L MCH 24 L RDW [place] % (Auto) 10.3 H Seg Neutrophils % INR APTT D-Dimer Sodium Potassium 5.1 H D Chloride Glucose 102 H POC Glucose Ferritin AST Lactate Dehydrogenase Total Creatine Kinase 612 H 974 H CK-MB (CK-2) 84.6 H 130.0 H CK-MB (CK-2) Rel Index 13.8 H 13.3 H Troponin T 2.190 H* D 3.140 H* D C-Reactive Protein Albumin LDL Cholesterol Direct 142 H HDL Cholesterol 30 L Coronavirus (PCR) 09/25/20 09/25/20 09/25/20 17:16 17:16 17:16 RBC MCV MCH RDW [place] % (Auto) Seg Neutrophils % INR APTT D-Dimer 465.30 H Sodium Potassium Chloride Glucose POC Glucose Ferritin 429.5 H AST Lactate Dehydrogenase 517 H Total Creatine Kinase CK-MB (CK-2) CK-MB (CK-2) Rel Index Troponin T C-Reactive Protein 2.90 H Albumin LDL Cholesterol Direct HDL Cholesterol Coronavirus (PCR) 09/25/20 09/26/20 09/26/20 Unknown 08:49 12:01 RBC MCV MCH RDW [place] % (Auto) Seg Neutrophils % INR APTT D-Dimer Sodium Potassium Chloride Glucose POC Glucose 121 H Ferritin AST Lactate Dehydrogenase Total Creatine Kinase 1095 H CK-MB (CK-2) 151.1 H CK-MB (CK-2) Rel Index 13.7 H Troponin T 1.820 H* D C-Reactive Protein Albumin LDL Cholesterol Direct HDL Cholesterol Coronavirus (PCR) Positive A 09/26/20 09/26/20 09/27/20 17:34 23:59 04:57 RBC MCV MCH RDW [place] % (Auto) Seg Neutrophils % INR APTT D-Dimer Sodium Potassium Chloride Glucose POC Glucose 111 H 119 H 112 H Ferritin AST Lactate Dehydrogenase Total Creatine Kinase CK-MB (CK-2) CK-MB (CK-2) Rel Index Troponin T C-Reactive Protein Albumin LDL Cholesterol Direct HDL Cholesterol Coronavirus (PCR) 09/27/20 09/27/20 09/27/20 06:52 06:52 06:52 RBC 5.21 H MCV 72 L MCH 23 L RDW [place] % (Auto) Seg Neutrophils % INR APTT D-Dimer Sodium 133 L D Potassium Chloride 97.4 L Glucose 109 H POC Glucose Ferritin AST 62 H Lactate Dehydrogenase Total Creatine Kinase CK-MB (CK-2) CK-MB (CK-2) Rel Index Troponin T C-Reactive Protein 18.10 H Albumin 3.1 L LDL Cholesterol Direct HDL Cholesterol Coronavirus (PCR) Chest x-ray: report reviewed, image reviewed Additional Studies: CHEST 1 VIEW 09/25/20 INDICATION: post pci COMPARISON: 09/24/2020 FINDINGS: SUPPORT DEVICES: None. HEART / MEDIASTINUM: No significant abnormality. LUNGS / PLEURA: No significant pulmonary or pleural abnormality. No pneumo thorax. ADDITIONAL FINDINGS: IMPRESSION: 1. No acute cardiopulmonary disease
[2020-09-27] MEDS: NITROGLYCERIN SYRINGE 3 ML ONE ×3 (10:20→10:30)
[2020-09-27] MEDS: SODIUM CHLORIDE 0.9% 500 ML 500 ML ONE ×2 (10:20→10:30)
[2020-09-27] MEDS: HEPARIN/NS 5000 UNIT/500ML 1,000 ML IR ONE ×2 (10:20→10:30)
[2020-09-27] MEDS: HEPARIN 10,000 UNITS/10 ML VIAL ONE ×2 (10:23→10:24)
--- NOTE | 2020-09-27 11:28 | Cardiac Catherization Report ---
DATE OF PROCEDURE: 09/27/2020 HEART CATHETERIZATION INDICATIONS: The patient is a pleasant 59-year-old female who presented with STEMI 3 days ago, with anterior ST changes, underwent primary PCI of LAD, and also have 90% mid right coronary, here for elective PCI of RCA. PROCEDURE: The patient was brought to the laboratory animal facility supervisor in a postabsorptive state, prepped and draped in sterile fashion. Juanito's test in right hand was normal. The patient already loaded with Plavix and aspirin. A 2 mL of 2% lidocaine used to anesthetize the right wrist. A standard 6 [place] hydrophilic sheath used to cannulate the right radial artery via modified Seldinger technique. All exchanges were performed to exchange a J-tip guidewire. JL3.5 catheter used to engage the left main. No dampening or ventricularization. Cineangiography performed in all projections. A JR4 guide used to cross the aortic valve under fluoroscopic guidance. Left ventriculography performed in the JIMENEZ projection via hand injections. Catheter flushed. Catheter used to engage the right coronary. No dampening or ventricularization. FINDINGS: Aortic pressure is 110/70. LV pressure is 110, LVEDP of 10 mmHg. Left ventricle reveals anterior apical hypokinesis/akinesis. Estimated ejection fraction of 40-45%. Left main without significant disease, left circumflex small. There is a 90% distal left circumflex stenosis, which is a very small vessel, approximately 1.5 mm. UVALDO 3 flow. LAD with a patent stent in the mid segment. Distal LAD with a 70% stenosis, very small vessel, 1.5 vessel. Medical management here. An 80% ulcerated mid right coronary stenosis. At this point, aspirin, Plavix, and heparin already loaded. A [place] wire used to cross the lesion without difficulty. Direct stent with a [place] 2.75 x 30 drug-eluting stent. Excellent angiographic result. Intravascular ultrasound reveals a opposed and well-expanded stent. No dissection, proximal RCA with mild disease, but no obstructive disease. No complications. I directly supervised the administration of fentanyl and Versed from 10:20 a.m. to 10:55 a.m. No immediate complications. IMPRESSION: 1. Successful elective PCI of mid right coronary placement of a drug-eluting stent 80% - 0%, UVALDO 2 flow to UVALDO 3 flow, IVUS guided. 2. Patent stent in the LAD. 3. A small vessel disease in distal LAD and left circumflex, medical management. 4. Left ventriculography reveals anterior apical hypokinesis. Estimated ejection fraction 40-45%. Normal LVEDP. 5. No evidence of aortic stenosis. PLAN: Continue medical management, statin therapy, dual antiplatelet therapy, low dose beta romero. Anticipate discharge in a.m. Results of procedure explained to the patient. All questions and concerns were addressed. TID: [id number] RECEIPT: [id number] JAMIE/ANUSHKA
[2020-09-27] MEDS: HEPARIN 5,000 UNIT/1 ML VIAL SUB-Q SCH ×2 (12:19→21:20)
--- NOTE | 2020-09-27 12:39 | Progress Note ---
Assessment and Plan Cultures: SARS CoV2 PCR: Positive A/P: 59-year-old female with hypertension admitted with STEMI: #COVID-19 infection: febrile now, CRP rising. #Acute STEMI: Status post primary PCI of LAD. Cardiology following. Recs: -Remains on room air, but with fever, rising CRP. Will start on p.o. colchicine -Monitor procalcitonin and CRP -IV ceftriaxone, azithromycin ordered -No indication for steroids or remdesivir at this time -Continue to monitor for hypoxia -monitor markers every 2-3 days Lico Patel MD, FACP [facility] O: [phone] F: [phone] Subjective Date of service: 09/27/20 Interval history: Febrile. Remains on room air. Denies any complaints. Objective - Exam Narrative Exam: Physical Exam Constitutional: Alert, cooperative. No acute distress Head, Ears, Nose: Normocephalic, atraumatic. External ears, nose normal Eyes: Conjunctivae/corneas clear. No icterus. No ptosis. Neck: Supple, no meningeal signs Cardiovascular: S1, S2 normal. Respiratory: Good air entry, clear to auscultation bilaterally GI: Soft, non-tender; bowel sounds normal. No peritoneal signs Musculoskeletal: No pedal edema, no cyanosis. Skin: No rash or abscess Hem/Lymphatic: No palpable cervical or supraclavicular nodes. No lymphangitis Psych: Mood ok. Affect normal Neurological: Awake, alert, oriented. No gross abnormality - Constitutional Vitals: Vital Signs Temp Pulse Resp BP Pulse Ox 98.7 F 82 18 135/87 94 09/27/20 03:19 09/27/20 11:26 09/27/20 11:26 09/27/20 09:20 09/27/20 11:26 Temperature -Last 24 Hours Temperature 98.7 F Temperature 101.7 F Temperature 99.7 F Temperature 98.4 F - Labs CBC & Chem 7: 09/27/20 06:52 09/27/20 06:52 Labs: Abnormal lab results 09/26/20 09/26/20 09/26/20 Range/Units 12:01 17:34 23:59 RBC (3.65-5.03) M/mm3 MCV (79-97) fl MCH (28-32) pg Sodium (137-145) mmol/L Chloride (98-107) mmol/L Glucose (65-100) mg/dL POC Glucose 121 H 111 H 119 H (70-105) mg/dL AST (5-40) units/L C-Reactive Protein (0.00-1.30) mg/dL Albumin (3.9-5) g/dL 09/27/20 09/27/20 09/27/20 Range/Units 04:57 06:52 06:52 RBC 5.21 H (3.65-5.03) M/mm3 MCV 72 L (79-97) fl MCH 23 L (28-32) pg Sodium (137-145) mmol/L Chloride (98-107) mmol/L Glucose (65-100) mg/dL POC Glucose 112 H (70-105) mg/dL AST (5-40) units/L C-Reactive Protein 18.10 H (0.00-1.30) mg/dL Albumin (3.9-5) g/dL 09/27/20 Range/Units 06:52 RBC (3.65-5.03) M/mm3 MCV (79-97) fl MCH (28-32) pg Sodium 133 L D (137-145) mmol/L Chloride 97.4 L (98-107) mmol/L Glucose 109 H (65-100) mg/dL POC Glucose (70-105) mg/dL AST 62 H (5-40) units/L C-Reactive Protein (0.00-1.30) mg/dL Albumin 3.1 L (3.9-5) g/dL
[2020-09-27] MEDS: AZITHROMYCIN 250 MG TAB PO SCH (15:06)
[2020-09-27] MEDS: COLCHICINE 0.6 MG TAB PO SCH ×2 (15:07→21:20)
[2020-09-27] MEDS: cefTRIAXone/NS 1 GM/50 ML 1 GM/50 ML BAG IV SCH (15:07)
--- NOTE | 2020-09-27 15:34 | Progress Note ---
Assessment and Plan #Coronary artery disease s/p STEMI approximately 3 days ago. * (09/24/2020) patient underwent LHC for STEMI with successful MARIAM of LAD. * Patient for elective second cath of RCA this a.m. * Cardiac cath reviewed (09/27/2020): Successful PCI of RCA with MARIAM 80% - 0%. Patent stent in LAD. Small vessel disease in distal LAD and left circumflex, recommend medical management. Left ventriculography reveals anterior apical hypokinesis. Estimated EF 40 to 45%. Normal LVEDP. * DAPT with ASA 81 mg/Plavix 75 mg x1 year. * Right radial cath site inspected. No bleeding or hematoma. Distal PMS intact. Juanito test reassuring. * Post procedure twelve-lead (09/27/20) shows sinus rhythm rate 66 with inverted T waves in anterior lateral leads. No ST segment elevation. Continue to monitor on telemetry #Hypotension * Hold current antihypertensive regimen: beta-romero, JUAN. Initiate fluid bolus 50 mL/hour x10 hours for total volume of 500 mL. * Post procedure twelve-lead ordered stat. #Covid 19+ * Management per primary team. #DVT prophylaxis * Heparin SQ Patient currently in guarded cardiac status. Patient is clear to transfer to telemetry from cardiology standpoint once COVID-19 status is resolved. Will follow. This patient was seen in conjunction with Dr Allen Fall who agrees with this assessment and plan of care - Patient Problems (1) Cardiomyopathy Current Visit: Yes Status: Acute (2) Coronary artery disease Current Visit: Yes Status: Chronic (3) Stented coronary artery Current Visit: Yes Status: Chronic (4) COVID-19 Current Visit: Yes Status: Acute (5) ST elevation (STEMI) myocardial infarction Current Visit: Yes Status: Resolved (6) DVT prophylaxis Current Visit: Yes Status: Acute Subjective Date of service: 09/27/20 Principal diagnosis: CAD Interval history: Patient resting comfortably in bed, s/p LHC. Telemetry reviewed: Sinus rhythm 90. No events Objective Last Vital Signs Temp 98.7 F 09/27/20 03:19 Pulse 75 09/27/20 15:00 Resp 15 09/27/20 15:00 BP 89/59 09/27/20 15:00 Pulse Ox 95 09/27/20 15:00 - Physical Examination General: Appears Well HEENT: Positive: PERRL, Normocephaly, Mucus Membranes Moist Neck: Positive: neck supple, trachea midline Cardiac: Positive: Reg Rate and Rhythm, S1/S2 Lungs: Positive: Normal Exam, Normal Breath Sounds Neuro: Positive: Grossly Intact Abdomen: Positive: Unremarkable, Soft Skin: Negative: Rash, Wound Musculoskeletal: No Pain Extremities: Present: upper extr. pulses, lower extr. pulses. Absent: edema - Labs and Meds Cardiac Enzymes 09/27/20 Range/Units 06:52 AST 62 H (5-40) units/L CBC 09/27/20 Range/Units 06:52 WBC 10.9 (4.5-11.0) K/mm3 RBC 5.21 H (3.65-5.03) M/mm3 Hgb 12.1 (10.1-14.3) gm/dl Hct 37.4 (30.3-42.9) % Plt Count 409 (140-440) K/mm3 Comprehensive Metabolic Panel 09/27/20 Range/Units 06:52 Sodium 133 L D (137-145) mmol/L Potassium 4.4 (3.6-5.0) mmol/L Chloride 97.4 L (98-107) mmol/L Carbon Dioxide 25 (22-30) mmol/L BUN 12 (7-17) mg/dL Creatinine 1.1 D (0.6-1.2) mg/dL Glucose 109 H (65-100) mg/dL Calcium 8.8 (8.4-10.2) mg/dL AST 62 H (5-40) units/L ALT 15 (7-56) units/L Alkaline Phosphatase 70 (35-129) units/L Total Protein 7.2 (6.3-8.2) g/dL Albumin 3.1 L (3.9-5) g/dL - Imaging and Cardiology Cardiac cath: report reviewed (Cardiac cath reviewed (09/27/2020): Successful PCI of RCA with MARIAM 80% - 0%. Patent stent in LAD. Small vessel disease in distal LAD and left circumflex, recommend medical management. Left ventriculography reveals anterior apical hypokinesis. Estimated EF 40 to 45%. Normal LVEDP. DAPT with ASA/P)
[2020-09-27] MEDS ORDERED: SODIUM CHLORIDE 0.9% 500 ML 500 ML ONE (16:05)
[2020-09-27] MEDS ORDERED: SODIUM CHLORIDE 0.9% 1000 ML 1,000 ML IV SCH (16:15)
--- NOTE | 2020-09-27 18:17 | Event Note ---
Date: 09/27/20 Patient underwent elective left heart catheterization today (09/27/2020): Successful PCI of RCA with MARIAM 80% - 0%. Patent stent in LAD. Small vessel disease in distal LAD and left circumflex, recommend medical management. Left ventriculography reveals anterior apical hypokinesis. Estimated EF 40 to 45%. Normal LVEDP. Continue dual antiplatelet therapy with ASA 81 mg/Plavix 75 mg x1 year. Patient tolerated the procedure well Mild hypotension; hold antihypertensives beta-blockers JUAN inhibitors Gentle hydration closely monitor blood pressures. We will continue rest of the management Closely monitor the patient and adjust the management as needed Continue COVID-19 management per protocols and guidelines ID following Plan of care reviewed with the patient and her nurse
[2020-09-27] MEDS: ALUM-MAG HYDROXIDE-SIMETHICONE 200-200-20MG/5ML ORAL LIQD 30 ML PO PRN (21:20)
[2020-09-28] MEDS: FAMOTIDINE 20 MG TAB PO SCH ×2 (09:19→21:50)
[2020-09-28] MEDS: AZITHROMYCIN 250 MG TAB PO SCH (09:19)
[2020-09-28] MEDS: COLCHICINE 0.6 MG TAB PO SCH ×2 (09:19→21:49)
[2020-09-28] MEDS: HEPARIN 5,000 UNIT/1 ML VIAL SUB-Q SCH ×2 (09:19→21:50)
[2020-09-28] MEDS: ASPIRIN EC 81 MG TAB PO SCH (09:19)
[2020-09-28] MEDS: CLOPIDOGREL 75 MG TAB PO SCH (09:19)
[2020-09-28] MEDS: cefTRIAXone/NS 1 GM/50 ML 1 GM/50 ML BAG IV SCH (09:20)
--- NOTE | 2020-09-28 10:42 | Progress Note ---
Assessment and Plan Cultures: SARS CoV2 PCR: Positive A/P: 59-year-old female with hypertension admitted with STEMI: #COVID-19 infection: febrile now, CRP rising. Labs from today show CRP 19.7, procalcitonin 0.06. #Acute STEMI: Status post primary PCI of LAD. Cardiology following. Recs: -Remains on room air, low grade fever, elevated CRP, continue on p.o. colchicine for now -Labs from today show CRP 19.7, procalcitonin 0.06. Antibiotics discontinued -No indication for steroids or remdesivir at this time -Continue to monitor for hypoxia -monitor markers, CRP ordered for AM Lico Patel MD, FACP [facility] O: [phone] F: [phone] Subjective Date of service: 09/28/20 Principal diagnosis: CAD Interval history: Low-grade fever. Remains on room air. Feels well. Objective - Exam Narrative Exam: Physical Exam Constitutional: Alert, cooperative. No acute distress Head, Ears, Nose: Normocephalic, atraumatic. External ears, nose normal Eyes: Conjunctivae/corneas clear. No icterus. No ptosis. Neck: Supple, no meningeal signs Cardiovascular: S1, S2 normal. Respiratory: Good air entry, clear to auscultation bilaterally GI: Soft, non-tender; bowel sounds normal. No peritoneal signs Musculoskeletal: No pedal edema, no cyanosis. Skin: No rash or abscess Hem/Lymphatic: No palpable cervical or supraclavicular nodes. No lymphangitis Psych: Mood ok. Affect normal Neurological: Awake, alert, oriented. No gross abnormality - Constitutional Vitals: Vital Signs Temp Pulse Resp BP Pulse Ox 98.4 F 81 16 132/79 97 09/28/20 08:00 09/28/20 10:00 09/28/20 10:00 09/28/20 10:09/28/20 10:00 Temperature -Last 24 Hours Temperature 98.4 F Temperature 100.6 F Temperature 99.3 F Temperature 99.7 F - Labs CBC & Chem 7: 09/27/20 06:52 09/27/20 06:52 Labs: Abnormal lab results 09/24/20 09/27/20 09/28/20 Range/Units 18:46 10:52 07:36 Activated Clotting Time 274 H 263 H (74-137) C-Reactive Protein 19.70 H (0.00-1.30) mg/dL
--- NOTE | 2020-09-28 12:15 | Progress Note ---
Assessment and Plan Assessment and plan: --Acute STEMI (ST elevation myocardial infarction) --Acute anterolateral ST elevation [place]; Emergent left catheterization. s/p PCI 09/25/2020 Severe two-vessel coronary artery disease in the S/P successful IVUS guided primary PCI placement of drug eluting stent mid LAD 80% mid right coronary stenosis smooth and stable for elective Left Heart cath and PCI on 09/27/2020 Echo ;left ventricle anterior apical hypokinesis with estimated EF 40 to 45% Continue dual antiplatelet therapy with aspirin and Plavix Continue beta-blockers , consider JUAN inhibitor's , nitrates and statins Morphine for pain , cardiology following. --Diarrhea; Imodium as needed , plenty of oral fluids. If no improvement Will check C. difficile --COVID-19 infection[ test positive on 09/25/2020], Patient reports that she was positive for the last 10 days continue isolation, patient is on room air saturating well Follow inflammatory markers, prone positioning, Chest x-ray negative for abnormalities ID evaluation noted and appreciated Monitor oxygen saturations daily --Dyspepsia; Current Visit: Yes Status: Acute. Advised Maalox 30 mL p.o. x1 now and daily as needed --Dyslipidemia; Current Visit: Yes Status: Acute. Low-cholesterol diet, statin --Hypertension/moderate control Current Visit: Yes Status: Acute Continue antihypertensives As needed medications, low-sodium diet --DVT prophylaxis Current Visit: Yes Status: Acute SCD to bilateral lower extremities while in bed. Cardiology, pulmonary, ID evaluation and recommendations noted and appreciated We will closely monitor the patient and adjust the management as needed Electronic Equipment Set Up Operator recommendations noted and appreciated Plan of care reviewed with the patient and her nurse Patient is stable to be transferred out of [facility] to medical floor with remote telemetry Possible discharge in 1 to 2 days if stable Brief history and daily hospital course; 59-year-old female patient was admitted through emergency room with acute ST elevation KS had emergent left heart catheterization and PCI to mid LAD, And elective intervention for 80% of RCA stenosis in 2 to 3 days, patient is on dual antiplatelet therapy and supportive care. Case of BUN hardy PCR test is positive 09/25/20[patient reports that she has been positive for the last 10 days] in isolation ID consulted. 09/26/2020; patient complains of intermittent chest pain and discomfort On isolation, ID consulted, follow inflammatory markers Consultants recommendations noted 09/27/2020; patient is scheduled for elective left heart catheterization for mid RCA stenosis intervention Patient will be transferred from [facility] after the procedure 09/28/20; patient complains of some loose stool 3 times since morning Denies chest pain or shortness of breath ID evaluation recommendations noted and appreciated History Interval history: I have seen and examined the patient at the bedside this morning Patient's chart and medications reviewed Patient complains of some 2-3 loose stools since morning Denies nausea vomiting Denies chest pain or shortness of breath Vital signs reviewed Hospitalist Physical - Constitutional Vitals: Temp Pulse Resp BP Pulse Ox 98.4 F 90 17 137/92 88 09/28/20 08:00 09/28/20 11:00 09/28/20 11:00 09/28/20 11:00 09/28/20 11:00 General appearance: Present: mild distress, well-nourished - EENT Eyes: Present: PERRL, EOM intact - Neck Neck: Present: supple, normal ROM - Respiratory Respiratory effort: normal Respiratory: bilateral: diminished, negative: rales, rhonchi, wheezing - Cardiovascular Rhythm: regular Heart Sounds: Present: S1 & S2 - Extremities Extremities: no ischemia, No edema - Abdominal General gastrointestinal: soft, non-tender, non-distended, normal bowel sounds - Integumentary Integumentary: Present: clear, warm - Psychiatric Psychiatric: appropriate mood/affect, cooperative - Neurologic Neurologic: CNII-XII intact, moves all extremities HEART Score - HEART Score EKG: Significant ST-depression Age: 45-65 Risk factors: 1-2 risk factors Troponin: Troponin T 1.820 ng/mL (0.00-0.029) H* D 09/26/20 08:49 Troponin: < normal limit Results - Labs CBC & Chem 7: 09/27/20 06:52 09/27/20 06:52 Labs: Laboratory Last Values WBC 10.9 K/mm3 (4.5-11.0) 09/27/20 06:52 RBC 5.21 M/mm3 (3.65-5.03) H 09/27/20 06:52 Hgb 12.1 gm/dl (10.1-14.3) 09/27/20 06:52 Hct 37.4 % (30.3-42.9) 09/27/20 06:52 MCV 72 fl (79-97) L 09/27/20 06:52 MCH 23 pg (28-32) L 09/27/20 06:52 MCHC 32 % (30-34) 09/27/20 06:52 RDW 14.8 % (13.2-15.2) 09/27/20 06:52 Plt Count 409 K/mm3 (140-440) 09/27/20 06:52 Lymph % (Auto) 21.5 % (13.4-35.0) 09/25/20 04:16 Crane % (Auto) 10.3 % (0.0-7.3) H 09/25/20 04:16 Eos % (Auto) 0.3 % (0.0-4.3) 09/25/20 04:16 Baso % (Auto) 0.2 % (0.0-1.8) 09/25/20 04:16 Lymph # (Auto) 1.5 K/mm3 (1.2-5.4) 09/25/20 04:16 Crane # (Auto) 0.7 K/mm3 (0.0-0.8) 09/25/20 04:16 Eos # (Auto) 0.0 K/mm3 (0.0-0.4) 09/25/20 04:16 Baso # (Auto) 0.0 K/mm3 (0.0-0.1) 09/25/20 04:16 Seg Neutrophils % 67.7 % (40.0-70.0) 09/25/20 04:16 Seg Neutrophils # 4.6 K/mm3 (1.8-7.7) 09/25/20 04:16 PT 14.6 Sec. (12.2-14.9) 09/24/20 17:48 INR 1.15 (0.87-1.13) H 09/24/20 17:48 APTT 124.2 Sec. (24.2-36.6) H* 09/24/20 17:48 Activated Clotting Time 263 (74-137) H 09/27/20 10:52 D-Dimer 465.30 ng/mlDDU (0-234) H 09/25/20 17:16 Sodium 133 mmol/L (137-145) L D 09/27/20 06:52 Potassium 4.4 mmol/L (3.6-5.0) 09/27/20 06:52 Chloride 97.4 mmol/L (98-107) L 09/27/20 06:52 Carbon Dioxide 25 mmol/L (22-30) 09/27/20 06:52 Anion Gap 15 mmol/L 09/27/20 06:52 BUN 12 mg/dL (7-17) 09/27/20 06:52 Creatinine 1.1 mg/dL (0.6-1.2) D 09/27/20 06:52 Estimated GFR > 60 ml/min 09/27/20 06:52 BUN/Creatinine Ratio 11 % 09/27/20 06:52 Glucose 109 mg/dL (65-100) H 09/27/20 06:52 POC Glucose 112 mg/dL (70-105) H 09/27/20 04:57 Calcium 8.8 mg/dL (8.4-10.2) 09/27/20 06:52 Ferritin 429.5 ng/mL (10.0-200.0) H 09/25/20 17:16 Total Bilirubin 0.50 mg/dL (0.1-1.2) 09/27/20 06:52 AST 62 units/L (5-40) H 09/27/20 06:52 ALT 15 units/L (7-56) 09/27/20 06:52 Alkaline Phosphatase 70 units/L (35-129) 09/27/20 06:52 Lactate Dehydrogenase 517 units/L (91-180) H 09/25/20 17:16 Total Creatine Kinase 1095 units/L (30-135) H 09/26/20 08:49 CK-MB (CK-2) 151.1 ng/mL (0.0-4.0) H 09/26/20 08:49 CK-MB (CK-2) Rel Index 13.7 (0-4) H 09/26/20 08:49 Troponin T 1.820 ng/mL (0.00-0.029) H* D 09/26/20 08:49 C-Reactive Protein 19.70 mg/dL (0.00-1.30) H 09/28/20 07:36 Total Protein 7.2 g/dL (6.3-8.2) 09/27/20 06:52 Albumin 3.1 g/dL (3.9-5) L 09/27/20 06:52 Albumin/Globulin Ratio 0.8 % 09/27/20 06:52 Triglycerides 85 mg/dL (2-149) 09/24/20 20:08 Cholesterol 184 mg/dL (50-199) 09/24/20 20:08 LDL Cholesterol Direct 142 mg/dL (50-130) H 09/24/20 20:08 HDL Cholesterol 30 mg/dL (40-59) L 09/24/20 20:08 Cholesterol/HDL Ratio 6.13 % 09/24/20 20:08 Procalcitonin 0.06 ng/mL (<0.15) 09/28/20 07:36 Coronavirus (PCR) Positive (Negative) A 09/25/20 Unknown Blood Type B POSITIVE 09/24/20 17:48 Antibody Screen Negative 09/24/20 17:48 Shi/IV: Voiding Method Toilet Active Medications - Current Medications Current Medications: Generic Name Dose Route Start Last Admin Trade Name Freq PRN Reason Stop Dose Admin Acetaminophen 650 mg 09/27/20 00:07 09/27/20 00:00 Acetaminophen 325 Mg Tab PO 650 mg Q6H PRN Administration Non Cardiac Pain or Temp>100.5 Hydrocodone Bitart/Acetaminophen 1 each 09/24/20 19:00 09/26/20 04:51 Hydrocodone/Acetaminophen 5-325 Mg Tab PO 1 each Q6H PRN Administration Pain, Moderate (4-6) Al Hydrox/Mg Hydrox/Simethicone 30 ml 09/26/20 08:18 09/27/20 21:20 Alum-Mag Hydroxide-Simethicone 384-233-48az/5ml Oral Liqd 30 Ml PO 30 ml DAILY PRN Administration Indigestion Aspirin 81 mg 09/28/20 10:00 09/28/20 09:19 Aspirin Ec 81 Mg Tab PO 81 mg QDAY THANG Administration Atorvastatin Calcium 40 mg 09/27/20 22:00 09/27/20 21:20 Atorvastatin 40 Mg Tab PO 40 mg QHS THANG Administration Azithromycin 500 mg 09/27/20 13:00 09/28/20 09:19 Azithromycin 250 Mg Tab PO 09/30/20 10:01 500 mg QDAY THANG Administration Protocol Clopidogrel Bisulfate 75 mg 09/25/20 10:00 09/28/20 09:19 Clopidogrel 75 Mg Tab PO 75 mg QDAY THANG Administration Colchicine 0.6 mg 09/27/20 13:00 09/28/20 09:19 Colchicine 0.6 Mg Tab PO 0.6 mg BID THANG Administration Famotidine 20 mg 09/27/20 10:00 09/28/20 09:19 Famotidine 20 Mg Tab PO 20 mg BID THANG Administration Heparin Sodium (Porcine) 5,000 unit 09/27/20 10:00 09/28/20 09:19 Heparin 5,000 Unit/1 Ml Vial SUB-Q 5,000 unit Q12HR THANG Administration Ceftriaxone Sodium 1 gm in 50 mls @ 100 mls/hr 09/27/20 13:00 09/28/20 09:20 Rocephin/Ns 1 Gm/50 Ml IV 100 mls/hr Q24HR THANG Administration Protocol Nitroglycerin 0.4 mg 09/25/20 08:19 09/26/20 01:09 Nitroglycerin 0.4 Mg Tab Subl SL 0.4 mg .Q5MIN PRN Administration Chest Pain Ondansetron HCl 4 mg 09/26/20 17:03 09/26/20 21:18 Ondansetron 4 Mg/2 Ml Inj IV 4 mg Q4H PRN Administration Nausea And Vomiting Sodium Chloride 10 ml 09/24/20 22:00 09/28/20 09:20 Sodium Chloride 0.9% 10 Ml Flush Syringe IV Not Given BID THANG Sodium Chloride 10 ml 09/24/20 17:55 Sodium Chloride 0.9% 10 Ml Flush Syringe IV PRN PRN LINE FLUSH
[2020-09-28] MEDS ORDERED: LOPERAMIDE 2 MG CAP PO ONE (14:00)
--- NOTE | 2020-09-28 14:21 | Progress Note ---
Assessment and Plan 59 YO Female with HTN presents to ED for evaluation. Pt reports "I have pain in my chest". Patient states that she has experienced an acute onset of chest pain that began at approximately 0900 hrs. Patient states that pain is 6-10/10, lorenzo bsternal, constant, nonradiating, burning in nature, associated with nausea, associated with vomiting, worsened with exertion, not relieved with rest. EMS was notified and upon arrival the patient was found to be in distress. An EKG was done and the patient was found to have evidence of an acute STEMI. A code STEMI was called and the patient was transported to [facility] for further care and evaluation of the aforementioned symptoms. The patient was seen and evaluated in the emergency department. All lab and imaging studies reviewed. Repeat EKG shows evidence of STEMI. Pt also found to have symptoms of Diastolic CHF. Cardiology team consulted. Patient admitted to ICU and initiated on STEMI protocol. Patient taken urgently to cardiac Senior Grant Writer for surgical invention. Patient denies fever, chills, palpitation, productive cough, skin rash. Patient said received ist Covid vaccination and few days after that she is positive for COVID. Patient still positive for COVID. Patient has cardiac catheterization yesterday. Patient drug eluting Coronary stent placement. Patient alert, awake. Resting on room air. O2 saturation 94%. No complaint of chest pain, shortness of breath or cough. Complaining diarrhea. Patient has no history of smoking , alcohol or drug abuse. 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 and has two children Patient afebrile. No leukocytosis. Chest xray done 09/25/20 reported No acute cardiopulmonary disease Patient presently on S/C Heparin, Famotidine, Ceftriaxone and zithromax. I spent critical care time of 35 minutes obtaining history, review the labs, review chest xray, talking to the nursing staff, respiratory therapy and work out plan of treatment. - Patient Problems (1) Diastolic CHF Current Visit: Yes Status: Acute Plan to address problem: Management as per cardiology. (2) Hypertension Current Visit: Yes Status: Acute Qualifiers: Hypertension type: essential hypertension Qualified Code(s): I10 - Ess ential (primary) hypertension Plan to address problem: Management as per primary care. (3) Coronary artery disease Current Visit: Yes Status: Chronic Plan to address problem: Patient undergone cardiac catherization and coronary stent placement. (4) COVID-19 Current Visit: Yes Status: Acute Plan to address problem: Management as per infectious diseases. Subjective Date of service: 09/28/20 Principal diagnosis: CAD Interval history: 59 YO Female with HTN presents to ED for evaluation. Pt reports "I have pain in my chest". Patient states that she has experienced an acute onset of chest pain that began at approximately 0900 hrs. Patient states that pain is 6-10/10, substernal, constant, nonradiating, burning in nature, associated with nausea, associated with vomiting, worsened with exertion, not relieved with rest. EMS was notified and upon arrival the patient was found to be in distress. An EKG was done and the patient was found to have evidence of an acute STEMI. A code STEMI was called and the patient was transported to [facility] for further care and evaluation of the aforementioned symptoms. The patient was seen and evaluated in the emergency department. All lab and imaging studies reviewed. Repeat EKG shows evidence of STEMI. Pt also found to have symptoms of Diastolic CHF. Cardiology team consulted. Patient admitted to ICU and initiated on STEMI protocol. Patient denies fever, chills, palpitation, productive cough, skin rash, recent ill contacts, or known exposure to COVID-19 Patient has cardiac catheterization yesterday. Patient drug eluting Coronary stent placement. Patient alert, awake. Resting on room air. O2 saturation 94%. No complaint of c hest pain, shortness of breath or cough. Complaining diarrhea. Patient has no history of smoking , alcohol or drug abuse. 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 and has two children Patient afebrile. No leukocytosis. Chest xray done 09/25/20 reported No acute cardiopulmonary disease Patient presently on S/C Heparin, Famotidine, Ceftriaxone and zithromax. Objective Vital Signs - 12hr 09/28/20 09/28/20 09/28/20 03:00 03:36 04:00 Temperature 100.6 F H Pulse Rate 87 89 Pulse Rate [ From Monitor] Respiratory 18 20 Rate Blood Pressure 111/63 97/66 O2 Sat by Pulse 93 96 Oximetry 09/28/20 09/28/20 09/28/20 05:00 06:00 07:00 Temperature Pulse Rate 87 85 84 Pulse Rate [ From Monitor] Respiratory 17 18 22 Rate Blood Pressure 113/59 118/75 109/71 O2 Sat by Pulse 95 93 92 Oximetry 09/28/20 09/28/20 09/28/20 08:00 09:00 10:00 Temperature 98.4 F Pulse Rate 84 90 81 Pulse Rate [ 84 From Monitor] Respiratory 17 25 H 16 Rate Blood Pressure 127/81 127/81 132/79 O2 Sat by Pulse 94 95 97 Oximetry 09/28/20 09/28/20 09/28/20 11:00 12:00 13:00 Temperature 98.0 F Pulse Rate 90 85 86 Pulse Rate [ 88 From Monitor] Respiratory 17 22 22 Rate Blood Pressure 137/92 128/83 148/95 O2 Sat by Pulse 88 95 93 Oximetry Constitutional: no acute distress, alert Eyes: non-icteric ENT: oropharynx moist Neck: supple, no lymphadenopathy, no JVD Effort: normal Ascultation: Bilateral: diminished breath sounds Cardiovascular: regular rate and rhythm, other (S1,S2) Gastrointestinal: normoactive bowel sounds, soft, non-tender Integumentary: normal Extremities: no cyanosis, no edema, pink and warm, pulses normal Neurologic: normal mental status, non-focal exam, pupils equal and round, CN II- XII normal, motor strength normal and Psychiatric: mood appropriate, affect normal CBC and BMP: 09/27/20 06:52 09/27/20 06:52 ABG, PT/INR, D-dimer: PT/INR, D-dimer PT 14.6 Sec. (12.2-14.9) 09/24/20 17:48 INR 1.15 (0.87-1.13) H 09/24/20 17:48 D-Dimer 465.30 ng/mlDDU (0-234) H 09/25/20 17:16 Abnormal lab findings: Abnormal Labs 09/24/20 09/24/20 09/24/20 17:48 17:48 17:48 RBC MCV 74 L MCH 24 L RDW 15.4 H Robeson % (Auto) 7.4 H Seg Neutrophils % 71.6 H INR 1.15 H APTT 124.2 H* Activated Clotting Time D-Dimer Sodium Potassium Chloride Glucose 190 H POC Glucose Ferritin AST Lactate Dehydrogenase Total Creatine Kinase CK-MB (CK-2) CK-MB (CK-2) Rel Index Troponin T C-Reactive Protein Albumin LDL Cholesterol Direct HDL Cholesterol Coronavirus (PCR) 0509/24/20 09/25/20 18:46 20:08 04:16 RBC MCV MCH RDW Robeson % (Auto) Seg Neutrophils % INR APTT Activated Clotting Time 274 H D-Dimer Sodium Potassium 5.1 H D Chloride Glucose 102 H POC Glucose Ferritin AST Lactate Dehydrogenase Total Creatine Kinase 612 H 974 H CK-MB (CK-2) 84.6 H 130.0 H CK-MB (CK-2) Rel Index 13.8 H 13.3 H Troponin T 2.190 H* D 3.140 H* D C-Reactive Protein Albumin LDL Cholesterol Direct 142 H HDL Cholesterol 30 L Coronavirus (PCR) 09/25/20 09/25/20 09/25/20 04:16 17:16 17:16 RBC MCV 74 L MCH 24 L RDW Robeson % (Auto) 10.3 H Seg Neutrophils % INR APTT Activated Clotting Time D-Dimer 465.30 H Sodium Potassium Chloride Glucose POC Glucose Ferritin 429.5 H AST Lactate Dehydrogenase Total Creatine Kinase CK-MB (CK-2) CK-MB (CK-2) Rel Index Troponin T C-Reactive Protein Albumin LDL Cholesterol Direct HDL Cholesterol Coronavirus (PCR) 09/25/20 09/25/20 09/26/20 17:16 Unknown 08:49 RBC MCV MCH RDW Robeson % (Auto) Seg Neutrophils % INR APTT Activated Clotting Time D-Dimer Sodium Potassium Chloride Glucose POC Glucose Ferritin AST Lactate Dehydrogenase 517 H Total Creatine Kinase 1095 H CK-MB (CK-2) 151.1 H CK-MB (CK-2) Rel Index 13.7 H Troponin T 1.820 H* D C-Reactive Protein 2.90 H Albumin LDL Cholesterol Direct HDL Cholesterol Coronavirus (PCR) Positive A 09/26/20 09/26/20 09/26/20 12:01 17:34 23:59 RBC MCV MCH RDW Robeson % (Auto) Seg Neutrophils % INR APTT Activated Clotting Time D-Dimer Sodium Potassium Chloride Glucose POC Glucose 121 H 111 H 119 H Ferritin AST Lactate Dehydrogenase Total Creatine Kinase CK-MB (CK-2) CK-MB (CK-2) Rel Index Troponin T C-Reactive Protein Albumin LDL Cholesterol Direct HDL Cholesterol Coronavirus (PCR) 09/27/20 09/27/20 09/27/20 04:57 06:52 06:52 RBC 5.21 H MCV 72 L MCH 23 L RDW Robeson % (Auto) Seg Neutrophils % INR APTT Activated Clotting Time D-Dimer Sodium Potassium Chloride Glucose POC Glucose 112 H Ferritin AST Lactate Dehydrogenase Total Creatine Kinase CK-MB (CK-2) CK-MB (CK-2) Rel Index Troponin T C-Reactive Protein 18.10 H Albumin LDL Cholesterol Direct HDL Cholesterol Coronavirus (PCR) 09/27/20 09/27/20 09/28/20 06:52 10:52 07:36 RBC MCV MCH RDW Robeson % (Auto) Seg Neutrophils % INR APTT Activated Clotting Time 263 H D-Dimer Sodium 133 L D Potassium Chloride 97.4 L Glucose 109 H POC Glucose Ferritin AST 62 H Lactate Dehydrogenase Total Creatine Kinase CK-MB (CK-2) CK-MB (CK-2) Rel Index Troponin T C-Reactive Protein 19.70 H Albumin 3.1 L LDL Cholesterol Direct HDL Cholesterol Coronavirus (PCR) Chest x-ray: report reviewed, image reviewed Additional Studies: CHEST 1 VIEW 09/25/20 INDICATION: post pci COMPARISON: 09/24/2020 FINDINGS: SUPPORT DEVICES: None. HEART / MEDIASTINUM: No significant abnormality. LUNGS / PLEURA: No significant pulmonary or pleural abnormality. No pneumothorax. ADDITIONAL FINDINGS: IMPRESSION: 1. No acute cardiopulmonary disease
--- NOTE | 2020-09-28 15:15 | Progress Note ---
Assessment and Plan #Coronary artery disease s/p STEMI approximately 3 days ago. * (09/24/2020) patient underwent C for STEMI with successful stent of LAD. * 2nd LHC (09/27/2020): Successful PCI of RCA with MARIAM 80% - 0%. Patent stent in LAD. Small vessel disease in distal LAD and left circumflex, recommend medical management. Left ventriculography reveals anterior apical hypokinesis. Estimated EF 40 to 45%. Normal LVEDP. * DAPT with ASA 81 mg/Plavix 75 mg x1 year. Initiate metoprolol 25 mg twice daily. Continue atorvastatin 40 mg nightly * Right radial cath site inspected. No bleeding or hematoma. Distal PMS intact. Juanito test reassuring. * Post procedure twelve-lead (09/27/20) shows sinus rhythm rate 66 with inverted T waves in anterior lateral leads. No ST segment elevation. Continue to monitor on telemetry #Covid 19+ * Management per primary team. #DVT prophylaxis * Heparin SQ Patient currently in stable cardiac status, maintaining SPO2 with light exertion. Patient may discharge from cardiology standpoint. Patient should follow-up with Dr Allen Fall with [facility] heart specialists within 1 to 2 weeks of discharge. #[phone] Alternatively patient should follow-up with [facility] as allowed by her insurance situation. This patient was seen in conjunction with Dr Allen Fall who agrees with this assessment and plan of care - Patient Problems (1) Cardiomyopathy Current Visit: Yes Status: Acute (2) Coronary artery disease Current Visit: Yes Status: Chronic (3) Stented coronary artery Current Visit: Yes Status: Chronic (4) COVID-19 Current Visit: Yes Status: Acute (5) ST elevation (STEMI) myocardial infarction Current Visit: Yes Status: Resolved (6) DVT prophylaxis Current Visit: Yes Status: Acute Subjective Date of service: 09/28/20 Principal diagnosis: CAD Interval history: Patient resting comfortably in bed, s/p LHC. Telemetry reviewed: Sinus rhythm 86. No events Objective Last Vital Signs Temp 98.0 F 09/28/20 12:00 Pulse 83 09/28/20 14:00 Resp 20 09/28/20 14:00 BP 127/79 09/28/20 14:00 Pulse Ox 96 09/28/20 14:00 - Physical Examination General: Appears Well HEENT: Positive: PERRL, Normocephaly, Mucus Membranes Moist Neck: Positive: neck supple, trachea midline Cardiac: Positive: Reg Rate and Rhythm, S1/S2 Lungs: Positive: Normal Exam, Normal Breath Sounds Neuro: Positive: Grossly Intact Abdomen: Positive: Unremarkable, Soft, Other (Multiple episodes of diarrhea) Skin: Negative: Rash, Wound Musculoskeletal: No Pain Extremities: Present: upper extr. pulses, lower extr. pulses. Absent: edema - Imaging and Cardiology EKG: report reviewed, image reviewed Cardiac cath: report reviewed (Cardiac cath reviewed (09/27/2020): Successful PCI of RCA with MARIAM 80% - 0%. Patent stent in LAD. Small vessel disease in distal LAD and left circumflex, recommend medical management. Left ventriculography reveals anterior apical hypokinesis. Estimated EF 40 to 45%. Normal LVEDP. DAPT with ASA/P)
[2020-09-28] MEDS: METOPROLOL TARTRATE 25 MG TAB PO SCH ×2 (16:53→21:50)
[2020-09-28] MEDS: HYDROcodone/ACETAMINOPHEN 5-325 MG TAB PO PRN (20:20)
[2020-09-29] MEDS: METOPROLOL TARTRATE 25 MG TAB PO SCH ×2 (10:49→21:38)
[2020-09-29] MEDS: COLCHICINE 0.6 MG TAB PO SCH ×2 (10:49→21:37)
[2020-09-29] MEDS: ASPIRIN EC 81 MG TAB PO SCH (10:49)
[2020-09-29] MEDS: FAMOTIDINE 20 MG TAB PO SCH ×2 (10:50→21:37)
[2020-09-29] MEDS: CLOPIDOGREL 75 MG TAB PO SCH (10:50)
[2020-09-29] MEDS: HEPARIN 5,000 UNIT/1 ML VIAL SUB-Q SCH ×2 (10:50→21:37)
--- NOTE | 2020-09-29 12:01 | Progress Note ---
Assessment and Plan Cultures: SARS CoV2 PCR: Positive A/P: 59-year-old female with hypertension admitted with STEMI: #COVID-19 infection: symptomatic only with fevers, no hypoxia. #Acute STEMI: Status post primary PCI of LAD. Cardiology following. Recs: -CRP downtrending, continue on p.o. colchicine for now, plan to decrease dose to once a day tomorrow for 5 days -procal low, no abx needed -No indication for steroids or remdesivir at this time -Continue to monitor for hypoxia -monitor CRP Lico Patel MD, FACP [facility] O: [phone] F: [phone] Subjective Date of service: 09/29/20 Principal diagnosis: CAD Interval history: No fever. Remains on room air. Feels well. Objective - Exam Narrative Exam: Physical Exam Constitutional: Alert, cooperative. No acute distress Head, Ears, Nose: Normocephalic, atraumatic. External ears, nose normal Eyes: Conjunctivae/corneas clear. No icterus. No ptosis. Neck: Supple, no meningeal signs Cardiovascular: S1, S2 normal. Respiratory: Good air entry, clear to auscultation bilaterally GI: Soft, non-tender; bowel sounds normal. No peritoneal signs Musculoskeletal: No pedal edema, no cyanosis. Skin: No rash or abscess Hem/Lymphatic: No palpable cervical or supraclavicular nodes. No lymphangitis Psych: Mood ok. Affect normal Neurological: Awake, alert, oriented. No gross abnormality - Constitutional Vitals: Vital Signs Temp Pulse Resp BP Pulse Ox 98.1 F 80 16 129/72 95 09/29/20 10:38 09/29/20 10:49 09/29/20 10:38 09/29/20 10:49 09/29/20 04:28 Temperature -Last 24 Hours Temperature 98.1 F Temperature 98.6 F Temperature 98.7 F Temperature 99.2 F Temperature 99.2 F Temperature 98.0 F - Labs CBC & Chem 7: 09/27/20 06:52 09/27/20 06:52 Labs: Abnormal lab results 09/29/20 Range/Units 05:56 C-Reactive Protein 11.50 H (0.00-1.30) mg/dL
[2020-09-29] MEDS: ALUM-MAG HYDROXIDE-SIMETHICONE 200-200-20MG/5ML ORAL LIQD 30 ML PO PRN (14:06)
--- NOTE | 2020-09-29 14:27 | Progress Note ---
Assessment and Plan Assessment and plan: --Diarrhea; Current Visit: Yes Status: Acute. Imodium as needed , plenty of oral fluids. If no improvement Will check C. difficile and supportive care --Acute STEMI (ST elevation myocardial infarction) --Acute anterolateral ST elevation [place]; Emergent left catheterization. s/p PCI 09/25/2020 Severe two-vessel coronary artery disease in the S/P successful IVUS guided primary PCI placement of drug eluting stent mid LAD 80% mid right coronary stenosis smooth and stable for elective Left Heart cath and PCI on 09/27/2020 Echo ;left ventricle anterior apical hypokinesis with estimated EF 40 to 45% Continue dual antiplatelet therapy with aspirin and Plavix Continue beta-blockers , consider JUAN inhibitor's , nitrates and statins Morphine for pain , cardiology following. --COVID-19 infection[ test positive on 09/25/2020], Patient reports that she was positive for the last 10 days continue isolation, patient is on room air saturating well Follow inflammatory markers, prone positioning, Chest x-ray negative for abnormalities ID following --Dyspepsia; Current Visit: Yes Status: Acute. Advised Maalox 30 mL p.o. x1 now and daily as needed --Dyslipidemia; Current Visit: Yes Status: Acute. Low-cholesterol diet, statin --Hypertension/moderate control Current Visit: Yes Status: Acute Continue antihypertensives As needed medications, low-sodium diet --DVT prophylaxis Current Visit: Yes Status: Acute SCD to bilateral lower extremities while in bed. Cardiology, pulmonary, ID evaluation and recommendations noted and appreciated We will closely monitor the patient and adjust the management as needed Fence Erector Supervisor recommendations noted and appreciated Plan of care reviewed with the patient and her nurse Patient is stable to be transferred out of [facility] to medical floor with remote telemetry Possible discharge in 1 to 2 days if stable Brief history and daily hospital course; 59-year-old female patient was admitted through emergency room with acute ST elevation [place] had emergent left heart catheterization and PCI to mid LAD, And elective intervention for 80% of RCA stenosis in 2 to 3 days, patient is on dual antiplatelet therapy and supportive care. Case of BUN hardy PCR test is positive 09/25/20[patient reports that she has been positive for the last 10 days] in isolation ID following, patient is having diarrhea for the last 2 days, worsening, Imodium, IV fluids plenty oral fluids, check C. difficile 09/26/2020; patient complains of intermittent chest pain and discomfort On isolation, ID consulted, follow inflammatory markers Consultants recommendations noted 09/27/2020; patient is scheduled for elective left heart catheterization for mid RCA stenosis intervention Patient will be transferred from [facility] after the procedure 09/28/20; patient complains of some loose stool 3 times since morning Denies chest pain or shortness of breath ID evaluation recommendations noted and appreciated 09/29/2020; patient continues to have severe diarrhea We will check C. difficile, IV fluids and supportive care Cardiology cleared for discharge, COVID-19 infection ID following Disposition; monitor clinically and discharge when stable History Interval history: I have seen and examined the patient at the bedside Patient's chart and medications reviewed Continues loose stool, no rectal bleeding or melena Complains of generalized weakness and dyspepsia Vital signs noted Hospitalist Physical - Constitutional Vitals: Temp Pulse Resp BP Pulse Ox 98.7 F 72 20 124/77 97 09/29/20 11:44 09/29/20 11:44 09/29/20 11:44 09/29/20 11:44 09/29/20 11:44 General appearance: Present: mild distress, well-nourished - EENT Eyes: Present: PERRL, EOM intact - Neck Neck: Present: supple, normal ROM - Respiratory Respiratory effort: normal Respiratory: bilateral: diminished, negative: rales, rhonchi, wheezing - Cardiovascular Rhythm: regular Heart Sounds: Present: S1 & S2 - Extremities Extremities: no ischemia, No edema - Abdominal General gastrointestinal: soft, non-tender, non-distended, normal bowel sounds - Integumentary Integumentary: Present: clear, warm - Psychiatric Psychiatric: appropriate mood/affect, cooperative - Neurologic Neurologic: CNII-XII intact, moves all extremities HEART Score - HEART Score EKG: Significant ST-depression Age: 45-65 Risk factors: 1-2 risk factors Troponin: Troponin T 1.820 ng/mL (0.00-0.029) H* D 09/26/20 08:49 Troponin: < normal limit Results - Labs CBC & Chem 7: 09/27/20 06:52 09/27/20 06:52 Labs: Laboratory Last Values WBC 10.9 K/mm3 (4.5-11.0) 09/27/20 06:52 RBC 5.21 M/mm3 (3.65-5.03) H 09/27/20 06:52 Hgb 12.1 gm/dl (10.1-14.3) 09/27/20 06:52 Hct 37.4 % (30.3-42.9) 09/27/20 06:52 MCV 72 fl (79-97) L 09/27/20 06:52 MCH 23 pg (28-32) L 09/27/20 06:52 MCHC 32 % (30-34) 09/27/20 06:52 RDW 14.8 % (13.2-15.2) 09/27/20 06:52 Plt Count 409 K/mm3 (140-440) 09/27/20 06:52 Lymph % (Auto) 21.5 % (13.4-35.0) 09/25/20 04:16 [place] % (Auto) 10.3 % (0.0-7.3) H 09/25/20 04:16 Eos % (Auto) 0.3 % (0.0-4.3) 09/25/20 04:16 Baso % (Auto) 0.2 % (0.0-1.8) 09/25/20 04:16 Lymph # (Auto) 1.5 K/mm3 (1.2-5.4) 09/25/20 04:16 [place] # (Auto) 0.7 K/mm3 (0.0-0.8) 09/25/20 04:16 Eos # (Auto) 0.0 K/mm3 (0.0-0.4) 09/25/20 04:16 Baso # (Auto) 0.0 K/mm3 (0.0-0.1) 09/25/20 04:16 Seg Neutrophils % 67.7 % (40.0-70.0) 09/25/20 04:16 Seg Neutrophils # 4.6 K/mm3 (1.8-7.7) 09/25/20 04:16 PT 14.6 Sec. (12.2-14.9) 09/24/20 17:48 INR 1.15 (0.87-1.13) H 09/24/20 17:48 APTT 124.2 Sec. (24.2-36.6) H* 09/24/20 17:48 Activated Clotting Time 263 (74-137) H 09/27/20 10:52 D-Dimer 465.30 ng/mlDDU (0-234) H 09/25/20 17:16 Sodium 133 mmol/L (137-145) L D 09/27/20 06:52 Potassium 4.4 mmol/L (3.6-5.0) 09/27/20 06:52 Chloride 97.4 mmol/L (98-107) L 09/27/20 06:52 Carbon Dioxide 25 mmol/L (22-30) 09/27/20 06:52 Anion Gap 15 mmol/L 09/27/20 06:52 BUN 12 mg/dL (7-17) 09/27/20 06:52 Creatinine 1.1 mg/dL (0.6-1.2) D 09/27/20 06:52 Estimated GFR > 60 ml/min 09/27/20 06:52 BUN/Creatinine Ratio 11 % 09/27/20 06:52 Glucose 109 mg/dL (65-100) H 09/27/20 06:52 POC Glucose 112 mg/dL (70-105) H 09/27/20 04:57 Calcium 8.8 mg/dL (8.4-10.2) 09/27/20 06:52 Ferritin 429.5 ng/mL (10.0-200.0) H 09/25/20 17:16 Total Bilirubin 0.50 mg/dL (0.1-1.2) 09/27/20 06:52 AST 62 units/L (5-40) H 09/27/20 06:52 ALT 15 units/L (7-56) 09/27/20 06:52 Alkaline Phosphatase 70 units/L (35-129) 09/27/20 06:52 Lactate Dehydrogenase 517 units/L (91-180) H 09/25/20 17:16 Total Creatine Kinase 1095 units/L (30-135) H 09/26/20 08:49 CK-MB (CK-2) 151.1 ng/mL (0.0-4.0) H 09/26/20 08:49 CK-MB (CK-2) Rel Index 13.7 (0-4) H 09/26/20 08:49 Troponin T 1.820 ng/mL (0.00-0.029) H* D 09/26/20 08:49 C-Reactive Protein 11.50 mg/dL (0.00-1.30) H 09/29/20 05:56 Total Protein 7.2 g/dL (6.3-8.2) 09/27/20 06:52 Albumin 3.1 g/dL (3.9-5) L 09/27/20 06:52 Albumin/Globulin Ratio 0.8 % 09/27/20 06:52 Triglycerides 85 mg/dL (2-149) 09/24/20 20:08 Cholesterol 184 mg/dL (50-199) 09/24/20 20:08 LDL Cholesterol Direct 142 mg/dL (50-130) H 09/24/20 20:08 HDL Cholesterol 30 mg/dL (40-59) L 09/24/20 20:08 Cholesterol/HDL Ratio 6.13 % 09/24/20 20:08 Procalcitonin 0.06 ng/mL (<0.15) 09/28/20 07:36 Coronavirus (PCR) Positive (Negative) A 09/25/20 Unknown Blood Type B POSITIVE 09/24/20 17:48 Antibody Screen Negative 09/24/20 17:48 Shi/IV: Voiding Method Toilet Active Medications - Current Medications Current Medications: Generic Name Dose Route Start Last Admin Trade Name Freq PRN Reason Stop Dose Admin Acetaminophen 650 mg 09/27/20 00:07 09/27/20 00:00 Acetaminophen 325 Mg Tab PO 650 mg Q6H PRN Administration Non Cardiac Pain or Temp>100.5 Hydrocodone Bitart/Acetaminophen 1 each 09/24/20 19:00 09/28/20 20:20 Hydrocodone/Acetaminophen 5-325 Mg Tab PO 1 each Q6H PRN Administration Pain, Moderate (4-6) Al Hydrox/Mg Hydrox/Simethicone 30 ml 09/26/20 08:18 09/29/20 14:06 Alum-Mag Hydroxide-Simethicone [phone] Oral Liqd 30 Ml PO 30 ml DAILY PRN Administration Indigestion Aspirin 81 mg 09/28/20 10:00 09/29/20 10:49 Aspirin Ec 81 Mg Tab PO 81 mg QDAY THANG Administration Atorvastatin Calcium 40 mg 09/27/20 22:00 09/28/20 21:51 Atorvastatin 40 Mg Tab PO 40 mg QHS THANG Administration Clopidogrel Bisulfate 75 mg 09/25/20 10:00 09/29/20 10:50 Clopidogrel 75 Mg Tab PO 75 mg QDAY THANG Administration Colchicine 0.6 mg 09/27/20 13:00 09/29/20 10:49 Colchicine 0.6 Mg Tab PO 0.6 mg BID THANG Administration Famotidine 20 mg 09/27/20 10:00 09/29/20 10:50 Famotidine 20 Mg Tab PO 20 mg BID THANG Administration Heparin Sodium (Porcine) 5,000 unit 09/27/20 10:00 09/29/20 10:50 Heparin 5,000 Unit/1 Ml Vial SUB-Q 5,000 unit Q12HR THANG Administration Metoprolol Tartrate 25 mg 09/28/20 16:00 09/29/20 10:49 Metoprolol Tartrate 25 Mg Tab PO 25 mg BID THANG Administration Nitroglycerin 0.4 mg 09/25/20 08:19 09/26/20 01:09 Nitroglycerin 0.4 Mg Tab Subl SL 0.4 mg .Q5MIN PRN Administration Chest Pain Ondansetron HCl 4 mg 09/26/20 17:03 09/26/20 21:18 Ondansetron 4 Mg/2 Ml Inj IV 4 mg Q4H PRN Administration Nausea And Vomiting Sodium Chloride 10 ml 09/24/20 22:00 09/29/20 10:51 Sodium Chloride 0.9% 10 Ml Flush Syringe IV 10 ml BID THANG Administration Sodium Chloride 10 ml 09/24/20 17:55 Sodium Chloride 0.9% 10 Ml Flush Syringe IV PRN PRN LINE FLUSH
[2020-09-30] MEDS: ONDANSETRON 4 MG/2 ML INJ IV PRN (07:50)
--- NOTE | 2020-09-30 08:18 | Progress Note ---
Assessment and Plan -Diarrhea; Current Visit: Yes Status: Acute. Imodium as needed , plenty of oral fluids. If no improvement Will check C. difficile and supportive care --Acute STEMI (ST elevation myocardial infarction) --Acute anterolateral ST elevation [place]; Emergent left catheterization. s/p PCI 09/25/2020 Severe two-vessel coronary artery disease in the S/P successful IVUS guided primary PCI placement of drug eluting stent mid LAD 80% mid right coronary stenosis smooth and stable for elective Left Heart cath and PCI on 09/27/2020 Echo ;left ventricle anterior apical hypokinesis with estimated EF 40 to 45% Continue dual antiplatelet therapy with aspirin and Plavix Continue beta-blockers , consider JUAN inhibitor's , nitrates and statins Morphine for pain , cardiology following. --COVID-19 infection[ test positive on 09/25/2020], Patient reports that she was positive for the last 10 days continue isolation, patient is on room air saturating well Follow inflammatory markers, prone positioning, Chest x-ray negative for abnormalities ID following --Dyspepsia; Current Visit: Yes Status: Acute. Advised Maalox 30 mL p.o. x1 now and daily as needed --Dyslipidemia; Current Visit: Yes Status: Acute. Low-cholesterol diet, statin --Hypertension/moderate control Current Visit: Yes Status: Acute Continue antihypertensives As needed medications, low-sodium diet Subjective Date of service: 09/30/20 Principal diagnosis: CAD Interval history: Patient feels good without any new concerns today. No chest pain no shortness of breath. Patient diarrhea has resolved. States only had one loose stool. Objective - Constitutional Vitals: Vital Signs - 12hr 09/29/20 09/30/20 21:22 04:30 Temperature 99.2 F 98.5 F Pulse Rate 79 77 Respiratory 18 18 Rate Blood Pressure 110/57 124/77 O2 Sat by Pulse 96 96 Oximetry General appearance: Present: no acute distress, well-nourished - EENT Eyes: PERRL, EOM intact ENT: hearing intact, clear oral mucosa Ears: bilateral: normal - Neck Neck: supple, normal ROM - Respiratory Respiratory effort: normal Respiratory: bilateral: CTA - Breasts Breasts: normal - Cardiovascular Rhythm: regular Heart Sounds: Present: S1 & S2. Absent: gallop, rub Extremities: pulses intact, No edema, normal color, Full ROM - Gastrointestinal General gastrointestinal: Present: soft, non-tender, non-distended, normal bowel sounds - Genitourinary Female genitourinary: normal - Integumentary Integumentary: clear, warm, dry - Musculoskeletal Musculoskeletal: 1, strength equal bilaterally - Neurologic Neurologic: moves all extremities - Psychiatric Psychiatric: memory intact, appropriate mood/affect, intact judgment & insight - Labs CBC & Chem 7: 09/27/20 06:52 09/27/20 06:52 Labs: Abnormal lab results 09/30/20 Range/Units 05:28 C-Reactive Protein 7.20 H (0.00-1.30) mg/dL HEART Score - HEART Score EKG: Significant ST-depression Age: 45-65 Risk factors: 1-2 risk factors Troponin: Troponin T 1.820 ng/mL (0.00-0.029) H* D 09/26/20 08:49 Troponin: < normal limit
[2020-09-30] MEDS: HEPARIN 5,000 UNIT/1 ML VIAL SUB-Q SCH (09:17)
[2020-09-30] MEDS: METOPROLOL TARTRATE 25 MG TAB PO SCH (09:17)
[2020-09-30] MEDS: ASPIRIN EC 81 MG TAB PO SCH (09:17)
[2020-09-30] MEDS: FAMOTIDINE 20 MG TAB PO SCH (09:17)
[2020-09-30] MEDS: COLCHICINE 0.6 MG TAB PO SCH (09:17)
[2020-09-30] MEDS: CLOPIDOGREL 75 MG TAB PO SCH (09:17)
--- NOTE | 2020-09-30 11:44 | Discharge Summary ---
Providers - Providers Date of Admission: 09/24/20 17:55 Date of discharge: 09/30/20 Attending physician: GABE MI 09/24/20 Consult to Cardiac Rehabilitation [CONS] Routine Reason For Exam: post pci 09/24/20 17:53 Consult to Physician [CONS] Stat Comment: Consulting Provider: MARILIN NAJERA Physician Instructions: Reason For Exam: stemi 09/24/20 19:02 Consult to Physician [CONS] Routine Comment: Consulting Provider: TALISHA HIGGINS Physician Instructions: Reason For Exam: NSTEMI 09/25/20 16:01 Consult to Physician [CONS] Stat Comment: Consulting Provider: MINDY BEEBE Physician Instructions: Reason For Exam: COVID-19 positive/ST elevation [place] s/p PCI Primary care physician: CUSTOMER SUPPORT PROFESSIONAL Hospitalization Condition: Good Pertinent studies: Left heart catheterization 09/25/2020. Severe two-vessel disease PCI placed. 6 1 additional left heart catheterization echocardiogram ejection fraction 40 to 45%. Hospital course: 9-year-old female patient was admitted through emergency room with acute ST elevation [place] had emergent left heart catheterization and PCI to mid LAD, And elective intervention for 80% of RCA stenosis in 2 to 3 days, patient is on dual antiplatelet therapy and supportive care. Case of BUN hardy PCR test is positive 09/25/20[patient reports that she has been positive for the last 10 days] in isolation ID following, patient is having diarrhea for the last 2 days, worsening, Imodium, IV fluids plenty oral fluids, check C. difficile 09/26/2020; patient complains of intermittent chest pain and discomfort On isolation, ID consulted, follow inflammatory markers Consultants recommendations noted 09/27/2020; patient is scheduled for elective left heart catheterization for mid RCA stenosis intervention Patient will be transferred from [facility] after the procedure Hospital course was complicated by episodes of diarrhea. This quickly resolved. Did not have to check for C. difficile colitis. Patient was stable for discharge after PCI with drug-eluting stent placement. Follow-up with cardiology 2 weeks. Disposition: DC- TO HOME OR SELFCARE Final Discharge Diagnosis (Prints w/discharge instructions): Non-ST elevation myocardial infarction - Discharge Diagnoses (1) COVID-19 Status: Acute Comment: Patient could should continue isolation for an additional 7 days. To complete 14-day course of respiratory isolation. Patient understands. (2) Cardiomyopathy Status: Acute Comment: Patient received beta-romero and JUAN inhibitor. Ejection fraction 40%. (3) Diastolic CHF Status: Acute Comment: Low-dose JUAN inhibitor ARB losartan 12.5. Also Lopressor 25 mg twice daily for coronary disease. (4) Hypertension Status: Acute Qualifiers: Hypertension type: essential hypertension Qualified Code(s): I10 - Essential (primary) hypertension Comment: Patient has fair control on JUAN inhibitor, beta-romero. Titrate accordingly doing outpatient follow-up. (5) Coronary artery disease Status: Chronic Comment: Patient with left heart catheterization severe two- vessel disease PCI with drug-eluting stent placed. (6) ST elevation (STEMI) myocardial infarction Status: Resolved (7) Dyslipidemia (high LDL; low HDL) Status: Acute Comment: Patient placed on atorvastatin 20 mg daily for discharge. Core Measure Documentation - Palliative Care Palliative Care/ Comfort Measures: Not Applicable - Core Measures Any of the following diagnoses?: acute [place] - Acute [place] Discharge Requirements Aspirin at discharge: Yes JUAN/ARB for LVSD if EF <40%: Yes Beta romero at discharge: Yes Statin for LDL = or >100 mg/dl on DC: Yes Exam - Constitutional Vitals: Temp Pulse Resp BP Pulse Ox 98.5 F 77 18 124/77 96 09/30/20 04:30 09/30/20 04:30 09/30/20 04:30 09/30/20 04:30 09/30/20 04:30 General appearance: Present: no acute distress, well-nourished - EENT Eyes: Present: PERRL ENT: hearing intact, clear oral mucosa - Neck Neck: Present: supple, normal ROM - Respiratory Respiratory effort: normal Respiratory: bilateral: CTA - Cardiovascular Heart Sounds: Present: S1 & S2. Absent: rub, click - Extremities Extremities: pulses symmetrical, No edema Peripheral Pulses: within normal limits - Abdominal General gastrointestinal: Present: soft, non-tender, non-distended, normal bowel sounds Female genitourinary: Present: normal - Integumentary Integumentary: Present: clear, warm, dry - Musculoskeletal Musculoskeletal: gait normal, strength equal bilaterally - Psychiatric Psychiatric: appropriate mood/affect, intact judgment & insight - Neurologic Neurologic: CNII-XII intact, moves all extremities Plan Activity: no driving until cleared by PCP Weight Bearing Status: Full Weight Bearing Diet: low cholesterol Special Instructions: record daily BP diary, other (Follow-up with cardiology.) Follow up with: PRIMARY CARE, [Primary Care Provider] - 7 Days Prescriptions: Colchicine [Colcrys] 0.6 mg PO BID #14 tablet Aspirin EC [Halfprin EC] 81 mg PO QDAY #30 tablet AtorvaSTATin [Lipitor] 40 mg PO QHS #30 tablet Metoprolol [Lopressor TAB] 25 mg PO BID #60 tablet Nitroglycerin [Nitrostat] 0.4 mg SL .Q5MIN PRN #10 tablet PRN Reason: Chest Pain HYDROcodone/APAP 5-325 [[place] 5-325 mg TAB] 1 each PO Q6H PRN #20 tablet PRN Reason: Pain, Moderate (4-6) Famotidine [Pepcid] 20 mg PO BID #14 tablet Clopidogrel [Plavix] 75 mg PO QDAY #30 tablet
--- NOTE | 2020-09-30 13:07 | Progress Note ---
Assessment and Plan Cultures: SARS CoV2 PCR: Positive A/P: 59-year-old female with hypertension admitted with STEMI: #COVID-19 infection: symptomatic only with fevers, no hypoxia. #Acute STEMI: Status post primary PCI of LAD. Cardiology following. Recs: -CRP downtrending, remains on room air. Ok for discharge. No need for additional colchicine, discussed with the patient Lico Patel MD, FACP [facility] O: [phone] F: [phone] Subjective Date of service: 09/30/20 Principal diagnosis: CAD Interval history: no fever. Doing well. Remains on room air. Objective - Exam Narrative Exam: Physical Exam Constitutional: Alert, cooperative. No acute distress Head, Ears, Nose: Normocephalic, atraumatic. External ears, nose normal Eyes: Conjunctivae/corneas clear. No icterus. No ptosis. Neck: Supple, no meningeal signs Cardiovascular: S1, S2 normal. Respiratory: Good air entry, clear to auscultation bilaterally GI: Soft, non-tender; bowel sounds normal. No peritoneal signs Musculoskeletal: No pedal edema, no cyanosis. Skin: No rash or abscess Hem/Lymphatic: No palpable cervical or supraclavicular nodes. No lymphangitis Psych: Mood ok. Affect normal Neurological: Awake, alert, oriented. No gross abnormality - Constitutional Vitals: Vital Signs Temp Pulse Resp BP Pulse Ox 98.5 F 77 18 124/77 96 09/30/20 04:30 09/30/20 04:30 09/30/20 04:30 09/30/20 04:30 09/30/20 04:30 Temperature -Last 24 Hours Temperature 98.5 F Temperature 99.2 F Temperature 98.0 F - Labs CBC & Chem 7: 09/27/20 06:52 09/27/20 06:52 Labs: Abnormal lab results 09/30/20 Range/Units 05:28 C-Reactive Protein 7.20 H (0.00-1.30) mg/dL
[2020-09-30 15:05] VITALS: BP 134/77
== END 2020-09-30 15:09 | disposition home or self-care (01) | DRG 246 ==
LOC: ED 17:26 → CC1 17:55 → IMCU 09-27 09:38 → 3A 09-28 18:07
PROVIDERS: ADMIT Internal Medicine; ATTEND Internal Medicine
PROC: 027034Z Dilation of Coronary Artery, One Artery with Drug-eluting Intraluminal Device, Percutaneous Approach (ICD-10-PCS; principal; 2020-09-24)
PROC: 4A023N7 Measurement of Cardiac Sampling and Pressure, Left Heart, Percutaneous Approach (ICD-10-PCS; 2020-09-24)
PROC: B2111ZZ Fluoroscopy of Multiple Coronary Arteries using Low Osmolar Contrast (ICD-10-PCS; 2020-09-24)
PROC: B2151ZZ Fluoroscopy of Left Heart using Low Osmolar Contrast (ICD-10-PCS; 2020-09-24)
PROC: B240ZZ3 Ultrasonography of Single Coronary Artery, Intravascular (ICD-10-PCS; 2020-09-24)
PROC: 027034Z Dilation of Coronary Artery, One Artery with Drug-eluting Intraluminal Device, Percutaneous Approach (ICD-10-PCS; 2020-09-27)
PROC: 4A023N7 Measurement of Cardiac Sampling and Pressure, Left Heart, Percutaneous Approach (ICD-10-PCS; 2020-09-27)
PROC: B2111ZZ Fluoroscopy of Multiple Coronary Arteries using Low Osmolar Contrast (ICD-10-PCS; 2020-09-27)
PROC: B2151ZZ Fluoroscopy of Left Heart using Low Osmolar Contrast (ICD-10-PCS; 2020-09-27)
PROC: B240ZZ3 Ultrasonography of Single Coronary Artery, Intravascular (ICD-10-PCS; 2020-09-27)
DX: I21.3 ST elevation (STEMI) myocardial infarction of unspecified site (principal); U07.1 COVID-19; I50.31 Acute diastolic (congestive) heart failure; I42.9 Cardiomyopathy, unspecified; I11.0 Hypertensive heart disease with heart failure; R10.13 Epigastric pain; I25.10 Atherosclerotic heart disease of native coronary artery without angina pectoris; E78.5 Hyperlipidemia, unspecified; Z88.8 Allergy status to other drugs, medicaments and biological substances; Z82.49 Family history of ischemic heart disease and other diseases of the circulatory system
CPT/HCPCS: 36415; 71045; 80048; 80053; 80061; 82550; 82553; 82728; 82962; 83615; 84145; 84484; 85025; 85027; 85347; 85379; 85610; 85730; 86140; 86850; 86900; 86901; 92928; 92941; 92978; 93005; 93306; 93458; 96361; 96374; G0378; A9270-GY; C1725; C1753; C1769; C1874; C1887; C1894; C9600; C9606; J0696; J1644; J2250; J2270; J2405; J3010; J7030; J7040; Q9967; U0003